=== PATIENT | male | born 1940 | race Caucasian/White ===

== ENCOUNTER 2019-01-12 09:40 | Outpatient (CLI) | payer MEDICARE, BC ==
--- NOTE | 2019-01-12 12:32 | RAD ---
Right foot 3 views: HISTORY: Foot pain, M19.9. COMPARISON: None. FINDINGS: Moderate degenerative change of the great toe metatarsophalangeal joint. Lisfranc interval is mainta ined. Large lateral osteophytes of the great toe metatarsophalangeal joint. No acute fracture or malalignm ent. Moderate plantar calcaneal spur. Mild mid foot degenerative changes. 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 No acute osseous abnormali ty. POS: [facility]
== END 2019-01-12 09:41 | disposition home or self-care (01) ==
LOC: BICRAD 09:40
PROVIDERS: ATTEND Podiatrist
DX: M19.071 Primary osteoarthritis, right ankle and foot (principal)

== ENCOUNTER 2019-08-22 09:33 | Day surgery (SDC) | payer MEDICARE, BC ==
[2019-08-19 14:13] VITALS: BMI 26.4
[2019-08-22 10:39] LABS: Hemoglobin 15.2 g/dL (14.0-18.0); Mean Corpuscular Hemoglobin 32.1 pg (27.0-31.0); Mean Corpuscular Volume 94.4 fL (78.0-98.0); Mean Platelet Volume 7.5 fL (7.4-10.4); Platelet Count 167 thou/uL (130-400); RBC Distribution Width 10.8 % (11.5-14.5); Red Blood Cell (RBC) Count 4.73 mill/uL (4.70-6.10); White Blood Cell (WBC) Count 7.8 thou/uL (4.8-10.8)
[2019-08-22 10:59] LABS: PTT 30.1 SEC (22.9-36.1)
[2019-08-22 11:15] LABS: Anion Gap 11 mmol/L (10-20); BUN (Urea Nitrogen) 16 mg/dL (8.4-25.7); Calc. Creatinine Clearance 87 mL/min (70-130); Calcium 9.5 mg/dL (7.8-10.44); Carbon Dioxide 29 mmol/L (23-31); Chloride 103 mmol/L (98-107); Estimated GFR-MDRD 82; Glucose 99 mg/dL (83-110); Potassium 4.5 mmol/L (3.5-5.1); Sodium 138 mmol/L (136-145)
[2019-08-22] MEDS ORDERED: Iothalamate Meglumine 60% 50 ML VIAL FS ONE (11:26)
[2019-08-22] MEDS ORDERED: Fentanyl 100 MCG/2 ML VIAL ONE (11:32)
[2019-08-22] MEDS ORDERED: Furosemide 20 MG/2 ML VIAL ONE (12:08)
[2019-08-22] MEDS ORDERED: Methylene Blue 50 MG/10 ML AMPUL ONE (12:08)
--- NOTE | 2019-08-22 13:24 | RAD ---
EXAM: XR IVP Retrograde PROVIDED CLINICAL HISTORY: Ureteral stent placement. COMPARISON: None FINDINGS/IMPRESSION: 11 intraoperative fluoroscopic images from bilateral retrograde urogram is submitted for interpretati on. Images demonstrate cannulation of each ureter, and bilateral retrograde urograms were performed. No hydronephrosis or hydroureter is seen. No persistent filling defect is identified withi n either ureter, and no focal narrowing is seen. There is suggested narrowing in the region of the left UPJ which is likely a factor of tortuosity. Degenerative changes are seen in the lumbar spine. C orrelation with intraoperative findings is recommended.
[2019-08-22] MEDS ORDERED: ePHEDrine/0.9% NaCl/PF SYRINGE 50 mg/10 ml ONE (13:34)
[2019-08-22] MEDS ORDERED: PROPOFOL 200 MG/20 ML VIAL ONE (13:34)
[2019-08-22] MEDS ORDERED: Ondansetron PF 4 MG/2 ML Vial ONE (13:34)
[2019-08-22] MEDS ORDERED: Dexamethasone 20 MG/5 ML VIAL ONE (13:34)
--- NOTE | 2019-08-22 14:18 | OP ---
DATE OF PROCEDURE: 08/22/2019 PREOPERATIVE DIAGNOSES: 1. Micro hematuria. 2. Bladder debris. 3. History of prostate cancer. POSTOPERATIVE DIAGNOSES: 1. Micro hematuria. 2. Bladder debris. 3. History of prostate cancer. 4. Urethral strictures. PROCEDURES PERFORMED: 1. Cystoscopy. 2. Evacuation of debris. 3. Bilateral retrograde pyelography. 4. Urethral dilatation. SPECIMEN SENT: None. ESTIMATED BLOOD LOSS: Minimal. FINDINGS: He had diffuse urethral stricture disease. We looked in with a 20-Trinidadian and gently dilate him and went up to a 25-Trinidadian. This was all done under direct vision by just changing Trinidadian sizes of the cystoscopic instruments. He had mildly enlarged prostate gland. He has had radiation and he had radiation changes particularly on the trigone. A lot of bullous tissue here, could not easily find the right ureteral orifice. It took probably 40 minutes to find it after the patient was given indigo carmine and Lasix, even then it was difficult to see it effluxing, but eventually it was found. Bilateral retrograde studies showed some slight tapering of the distal ureters as they entered the bladder, a little bit worse on the right than the left, but no significant sign of obstruction or hydronephrosis to my review. The bladder itself was free of tumor, foreign body, or stone. The only findings were some radiation changes mainly along the trigone and floor of the bladder. DESCRIPTION OF PROCEDURE: After obtaining written and verbal consent from the patient after receiving IV antibiotics, he was taken to the operating suite. He was placed in the supine position on the treatment table. PlexiPulses were placed on his lower extremities and turned on. He was given a general anesthetic and oral obturator intubation. He was placed in the dorsal lithotomy position and he was sterilely prepped and draped. Cystoscopy was performed with a 22-Trinidadian sheath. This was well lubricated and advanced under direct vision through the male urethra into the urinary bladder with the aid of a 30-degree lens and video camera and monitor. The findings were as mentioned. The bladder was filled and emptied a number of times to wash out all of the debris that was on the floor of the bladder and then the bladder was examined both the 30 and the 70-degree lens with the findings above. At this point, we went ahead and easily identified the left ureteral orifice and we could not intubated it with a Pollack catheter, but we were able to place an angle-tipped Glidewire in it and then placed a Pollack catheter in it and then injected about 12 to 15 mL of contrast in a retrograde manner, filling out the system completely. There was no hydronephrosis and it did drain well, tapered a little bit, and there was some J hooking on the left side of the ureter. We could not find the right ureteral orifice. We searched for quite a bit for giving Lasix and indigo carmine. Even then, I did not ever really see it effluxing blue urine, but we did eventually find it. The reason it was difficult to find was basically related just to the some of the bullous edema and radiation changes seen along the trigone. Once it was found, we were able to get an angled Glidewire in it and then advanced the Pollack catheter over this, then injected about 15 mL of contrast in a retrograde manner, removing the Pollack catheter, watching efflux briskly, and watching the ureter basically clear. At this point, the bladder was drained. The instruments were removed. He was taken out of the dorsal lithotomy position, awakened, extubated, and taken by amanda to the recovery room. Job ID: [id number]
== END 2019-08-22 14:50 | disposition home or self-care (01) ==
LOC: SDC 09:33
PROVIDERS: ATTEND Urology
PROC: BT141ZZ Fluoroscopy of Kidneys, Ureters and Bladder using Low Osmolar Contrast (ICD-10-PCS; principal; 2019-08-22)
PROC: 0T7D8ZZ Dilation of Urethra, Via Natural or Artificial Opening Endoscopic (ICD-10-PCS; 2019-08-22)
DX: N35.919 Unspecified urethral stricture, male, unspecified site (principal); N32.89 Other specified disorders of bladder; R31.29 Other microscopic hematuria; N40.1 Benign prostatic hyperplasia with lower urinary tract symptoms; E78.00 Pure hypercholesterolemia, unspecified; I48.91 Unspecified atrial fibrillation; Z79.82 Long term (current) use of aspirin; Z79.899 Other long term (current) drug therapy; Z88.8 Allergy status to other drugs, medicaments and biological substances
CPT/HCPCS: 52281; 74420; 80048; 85027; 85610; 85730; C1758; C1769; Q9968; J0690; J1100; J1940; J2405; J2704; J3010

== ENCOUNTER 2021-12-31 12:15 | Outpatient (CLI) | payer MEDICARE, BC ==
[2021-12-31 13:02] LABS: #Basophils 0.1 10x3/uL (0.0-0.2); #Eosinphils 0.2 10x3/uL (0.0-0.5); #Monocytes 0.6 10x3/uL (0.0-1.1); #Neutrophils 9.4 10x3/uL (1.5-8.4); %Basophils 0.5 % (0.0-2.0); %Eosinophils 1.8 % (0.0-6.0); %Lymphocytes 13.2 % (18.0-47.0); %Monocytes 4.8 % (0.0-10.0); %Neutrophils 78.9 % (40.0-75.0); Hemoglobin 11.9 g/dL (13.5-17.5); Mean Corpuscular Hemoglobin 28.2 pg (27.0-33.0); Mean Corpuscular Volume 85.5 fl (81.2-95.1); Platelet Count 296 10x3/uL (150-450); RBC Distribution Width 12.1 % (11.5-14.5); Red Blood Cell (RBC) Count 4.22 10x6/uL (4.32-5.72)
[2022-01-01 00:19] LABS: SARS-CoV-2 PCR by NAA Not Detected (NotDetected)
== END 2021-12-31 12:16 | disposition home or self-care (01) ==
LOC: LABBT 12:15
PROVIDERS: ATTEND Surgery
DX: Z01.812 Encounter for preprocedural laboratory examination (principal); C67.9 Malignant neoplasm of bladder, unspecified; Z20.822 Contact with and (suspected) exposure to COVID-19
CPT/HCPCS: 71046; 85025; U0003; U0005

== ENCOUNTER 2022-01-03 10:12 | Day surgery (SDC) | payer MEDICARE, BC ==
[2022-01-02 09:57] VITALS: BMI 26.9
[2022-01-03] MEDS ORDERED: Acetaminophen 500 MG TAB ONE (10:56)
[2022-01-03] MEDS ORDERED: Bupivacaine 0.25% 10 ML VIAL ONE (10:59)
[2022-01-03] MEDS ORDERED: Lidocaine 1% w/Epinephrine 1:100K 20 ML VIAL ONE (10:59)
[2022-01-03] MEDS ORDERED: Propofol 500 MG/50 ML VIAL ONE (11:30)
[2022-01-03] MEDS ORDERED: CEFAZOLIN 2 GM VIAL ONE (11:41)
[2022-01-03] MEDS ORDERED: Sodium Chloride 0.9% 100 ML ONE (11:41)
[2022-01-03] MEDS ORDERED: Lidocaine 1% PF 5 ML VIAL ONE (11:46)
[2022-01-03] MEDS ORDERED: Ondansetron PF 4 MG/2 ML Vial ONE (11:46)
[2022-01-03] MEDS ORDERED: ePHEDrine 50 MG/ML VIAL ONE (11:46)
[2022-01-03] MEDS ORDERED: PHENYLEPHRINE-NS 100 MCG/ML 10 ML SYRINGE ONE (11:46)
[2022-01-03] MEDS ORDERED: PROPOFOL 200 MG/20 ML VIAL ONE (11:46)
== END 2022-01-03 14:55 | disposition home or self-care (01) ==
LOC: SDC 10:12
PROVIDERS: ATTEND Surgery
PROC: 02HV33Z Insertion of Infusion Device into Superior Vena Cava, Percutaneous Approach (ICD-10-PCS; principal; 2022-01-03)
DX: C67.9 Malignant neoplasm of bladder, unspecified (principal); N18.9 Chronic kidney disease, unspecified; I48.91 Unspecified atrial fibrillation; Z79.82 Long term (current) use of aspirin; Z79.899 Other long term (current) drug therapy; Z88.8 Allergy status to other drugs, medicaments and biological substances
CPT/HCPCS: 36561; 71045; C1788; J1642; J2704; J3490; S0020

== ENCOUNTER 2022-08-07 12:17 | Inpatient (IN) | payer MEDICARE, BC ==
[2022-08-07 13:41] LABS: Hemoglobin 12.5 g/dL (14.0-18.0); Mean Corpuscular HGB CONC 31.1 g/dL (32.0-36.0); Mean Corpuscular Hemoglobin 24.7 pg (27.0-31.0); Mean Corpuscular Volume 79.4 fl (78.0-98.0); Mean Platelet Volume 7.1 fL (7.4-10.4); Platelet Count 406 10x3/uL (130-400); Red Blood Cell (RBC) Count 5.07 mill/uL (4.70-6.10); White Blood Cell (WBC) Count 23.6 10x3/uL (4.8-10.8)
[2022-08-07 14:07] LABS: ALT (SGPT) 15 U/L (8-55); AST (SGOT) 16 U/L (5-34); Albumin 3.9 g/dL (3.4-4.8); Alkaline Phosphatase 77 U/L (40-110); Anion Gap 11 mmol/L (10-20); BUN (Urea Nitrogen) 30 mg/dL (8.4-25.7); Calc. Creatinine Clearance 0 mL/min (70-130); Calcium 8.7 mg/dL (7.8-10.44); Carbon Dioxide 24 mmol/L (23-31); Chloride 103 mmol/L (98-107); Estimated GFR 44; Globulin 2.8 g/dL (2.4-3.5); Glucose 143 mg/dL (83-110); Magnesium 1.8 mg/dL (1.6-2.6); Potassium 3.8 mmol/L (3.5-5.1); Protein, Total 6.7 g/dL (5.8-8.1); Sodium 134 mmol/L (136-145)
[2022-08-07 14:09] LABS: Band 1 % (5-11); Hypochromia SLIGHT = 6-15 cells (100X) (0-5/hpf); Lymphocytes 11 % (21-51); MDiff Complete? YES; Monocytes 7 % (0-10); Neutrophil 79 % (42-75); Platelet Morphology Comment Appears Increased; Polychromasia SLIGHT = 2-3 cells (100X) (0-2/hpf); Reactive Lymphocytes 2 % (0-10)
[2022-08-07] MEDS ORDERED: Cefepime 2 GM VIAL ONE (14:47)
[2022-08-07 14:57] LABS: SARS-CoV-2 NAA Rapid Test Not Detected (NotDetected)
[2022-08-07] MEDS ORDERED: Vancomycin 1 GM/200 ML (FROZEN) BAG ONE (16:07)
[2022-08-07] MEDS ORDERED: Loperamide HCl 2 MG CAP ONE (16:09)
[2022-08-07 16:27] LABS: Bacteria/HPF 4+ HPF (None Seen); Bilirubin Negative (Negative); Blood, Urine Trace (Negative); Clarity Turbid (Clear); Glucose, Urine (Dipstick) Normal (Negative); Ketone, Urine Negative (Negative); Leukocyte 500 Leu/uL (Negative); Nitrite Negative (Negative); Protein, Urine (Dipstick) 70 mg/dL (Neg-Trace); Specific Gravity, Urine 1.015 (1.002-1.036); Squamous Epithelial 0-3 HPF (0-3); Urobilinogen Normal mg/dL (Less than 2); WBC/HPF Greater than 50 HPF (0-3); pH, Urine 8.5 (5.0-9.0)
[2022-08-07] MEDS ORDERED: Loperamide HCl 2 MG CAP PO PRN (17:26)
[2022-08-07] MEDS ORDERED: Acetaminophen 325 MG TAB PO PRN (17:26)
[2022-08-07] MEDS ORDERED: Ondansetron ODT 4 MG TAB PO PRN (17:26)
[2022-08-07] MEDS ORDERED: Diphenoxylate HCl/Atropine Tablet PO PRN (18:03)
[2022-08-07] MEDS: Sodium Chloride 0.9% 1,000 ML IV SCH (21:43)
[2022-08-07] MEDS: Famotidine 20 MG TAB PO SCH (21:52)
[2022-08-07] MEDS: Rosuvastatin 10 MG TAB PO SCH (21:52)
[2022-08-07] MEDS: Mirtazapine 15 MG TAB PO SCH (21:52)
[2022-08-07] MEDS: Apixaban 5 MG TAB PO SCH (21:52)
[2022-08-07 23:24] VITALS: BMI 25.2
[2022-08-07] MEDS: VANCOMYCIN 1.25 GM/250 ML BAG 1.25 GM in Premix Bag 1 BAG IVPB SCH (23:49)
[2022-08-08] MEDS: Cefepime 2 GM in Sodium Chloride 0.9% 100 ML IVPB SCH ×2 (02:23→14:23)
[2022-08-08] MEDS: Sodium Chloride 0.9% 1,000 ML IV SCH (05:42)
[2022-08-08 07:38] LABS: Hemoglobin 10.2 g/dL (14.0-18.0); Mean Corpuscular HGB CONC 31.3 g/dL (32.0-36.0); Mean Corpuscular Hemoglobin 24.5 pg (27.0-31.0); Mean Corpuscular Volume 78.4 fl (78.0-98.0); Mean Platelet Volume 7.5 fL (7.4-10.4); Platelet Count 268 10x3/uL (130-400); RBC Distribution Width 15.8 % (11.5-14.5); Red Blood Cell (RBC) Count 4.15 mill/uL (4.70-6.10); White Blood Cell (WBC) Count 13.8 10x3/uL (4.8-10.8)
[2022-08-08 07:44] LABS: Anion Gap 8 mmol/L (10-20); BUN (Urea Nitrogen) 23 mg/dL (8.4-25.7); Calc. Creatinine Clearance 55 mL/min (70-130); Calcium 7.9 mg/dL (7.8-10.44); Carbon Dioxide 25 mmol/L (23-31); Chloride 107 mmol/L (98-107); Estimated GFR 57; Glucose 92 mg/dL (83-110); Potassium 4.1 mmol/L (3.5-5.1); Sodium 136 mmol/L (136-145)
[2022-08-08] MEDS: Famotidine 20 MG TAB PO SCH ×2 (08:40→20:02)
[2022-08-08] MEDS: Apixaban 5 MG TAB PO SCH ×2 (08:40→20:02)
[2022-08-08] MEDS: Aspirin 81 mg Enteric Coated Tablet PO SCH ×2 (08:40→08:41)
[2022-08-08] MEDS: predniSONE 50 MG TAB PO SCH (08:40)
[2022-08-08] MEDS: Calcium Carbonate 600 MG + Vit D TAB PO SCH (08:40)
[2022-08-08] MEDS: Cyanocobalamin (Vitamin B-12) 1,000 MCG TAB PO SCH (08:40)
[2022-08-08 08:50] LABS: #Eosinphils 0.1 thou/uL (0.0-0.7); #Lymphocytes 1.9 thou/uL (1.20-3.40); #Monocytes 0.8 thou/uL (0.11-0.59); %Eosinophils 0.6 % (0.0-10.0); %Lymphocytes 14.1 % (21.0-51.0); %Monocytes 5.6 % (0.0-10.0); %Neutrophils 79.7 % (42.0-75.0); MDiff Complete? YES; Microcytosis SLIGHT = 6-15 cells (100X) (0-5/hpf); Platelet Morphology Comment Appears Adequate; Polychromasia SLIGHT = 2-3 cells (100X) (0-2/hpf)
[2022-08-08] MEDS ORDERED: FLU VACC QS2022-23(65YR UP)/PF 240 MCG/0.7 ML SYRINGE IM ONE (09:00)
[2022-08-08 12:52] LABS: Campy jejuni + coli by PCR Negative (Negative); STEC Shiga Toxin 1+2 Negative (Negative); Salmonella spp. by PCR Negative (Negative); Shigella spp + EIEC by PCR Negative (Negative)
[2022-08-08] MEDS: Mirtazapine 15 MG TAB PO SCH (20:02)
[2022-08-08] MEDS: Rosuvastatin 10 MG TAB PO SCH (20:02)
[2022-08-08] MEDS ORDERED: Melatonin 3 MG TAB PO PRN (20:04)
[2022-08-09] MEDS: VANCOMYCIN 1.25 GM/250 ML BAG 1.25 GM in Premix Bag 1 BAG IVPB SCH (00:07)
[2022-08-09] MEDS: Cefepime 2 GM in Sodium Chloride 0.9% 100 ML IVPB SCH ×2 (02:56→14:22)
[2022-08-09] MEDS ORDERED: Simethicone Chewable 80 MG TAB PO SCH (03:15)
[2022-08-09 06:12] LABS: #Eosinphils 0.1 thou/uL (0.0-0.7); #Lymphocytes 2.2 thou/uL (1.20-3.40); #Monocytes 1.1 thou/uL (0.11-0.59); #Neutrophils 15.3 thou/uL (1.40-6.50); %Eosinophils 0.3 % (0.0-10.0); %Lymphocytes 11.9 % (21.0-51.0); %Monocytes 5.8 % (0.0-10.0); Hemoglobin 11.1 g/dL (14.0-18.0); Mean Corpuscular Hemoglobin 24.8 pg (27.0-31.0); Mean Corpuscular Volume 77.6 fl (78.0-98.0); Mean Platelet Volume 7.7 fL (7.4-10.4); Platelet Count 274 10x3/uL (130-400); RBC Distribution Width 16.1 % (11.5-14.5); Red Blood Cell (RBC) Count 4.46 mill/uL (4.70-6.10); White Blood Cell (WBC) Count 18.7 10x3/uL (4.8-10.8)
[2022-08-09 06:40] LABS: Anion Gap 11 mmol/L (10-20); BUN (Urea Nitrogen) 21 mg/dL (8.4-25.7); Calc. Creatinine Clearance 58 mL/min (70-130); Calcium 8.3 mg/dL (7.8-10.44); Carbon Dioxide 25 mmol/L (23-31); Chloride 103 mmol/L (98-107); Estimated GFR 61; Glucose 106 mg/dL (83-110); Potassium 3.5 mmol/L (3.5-5.1); Sodium 135 mmol/L (136-145)
[2022-08-09] MEDS: Famotidine 20 MG TAB PO SCH ×2 (08:10→20:29)
[2022-08-09] MEDS: Calcium Carbonate 600 MG + Vit D TAB PO SCH (08:10)
[2022-08-09] MEDS: predniSONE 50 MG TAB PO SCH (08:10)
[2022-08-09] MEDS: Apixaban 5 MG TAB PO SCH ×2 (08:10→20:29)
[2022-08-09] MEDS: Aspirin 81 mg Enteric Coated Tablet PO SCH (08:10)
[2022-08-09] MEDS: Cyanocobalamin (Vitamin B-12) 1,000 MCG TAB PO SCH (08:11)
[2022-08-09] MEDS ORDERED: Mag-Al Plus 1200 MG/1200 MG/120 MG/30 ML UDCUP PO SCH (08:45)
[2022-08-09] MEDS ORDERED: traZODone HCl 50 MG TAB PO PRN (19:58)
[2022-08-09] MEDS: Mirtazapine 15 MG TAB PO SCH (20:29)
[2022-08-09] MEDS: Rosuvastatin 10 MG TAB PO SCH (20:29)
[2022-08-09 23:48] LABS: Vancomycin, Trough 11.2 ug/mL
[2022-08-10] MEDS: VANCOMYCIN 1.25 GM/250 ML BAG 1.25 GM in Premix Bag 1 BAG IVPB SCH (00:14)
[2022-08-10] MEDS: Cefepime 2 GM in Sodium Chloride 0.9% 100 ML IVPB SCH (03:03)
[2022-08-10 06:50] LABS: #Eosinphils 0.1 thou/uL (0.0-0.7); #Neutrophils 12.1 thou/uL (1.40-6.50); %Basophils 0.2 % (0.0-1.0); %Eosinophils 0.6 % (0.0-10.0); %Lymphocytes 13.1 % (21.0-51.0); %Monocytes 6.6 % (0.0-10.0); %Neutrophils 79.6 % (42.0-75.0); Hemoglobin 11.1 g/dL (14.0-18.0); Mean Corpuscular HGB CONC 32.4 g/dL (32.0-36.0); Mean Corpuscular Hemoglobin 25.2 pg (27.0-31.0); Mean Corpuscular Volume 77.7 fl (78.0-98.0); Mean Platelet Volume 7.9 fL (7.4-10.4); Platelet Count 254 10x3/uL (130-400); RBC Distribution Width 16.3 % (11.5-14.5); Red Blood Cell (RBC) Count 4.41 mill/uL (4.70-6.10); White Blood Cell (WBC) Count 15.2 10x3/uL (4.8-10.8)
[2022-08-10 07:12] LABS: Anion Gap 11 mmol/L (10-20); BUN (Urea Nitrogen) 20 mg/dL (8.4-25.7); Calc. Creatinine Clearance 57 mL/min (70-130); Calcium 8.3 mg/dL (7.8-10.44); Carbon Dioxide 26 mmol/L (23-31); Chloride 102 mmol/L (98-107); Estimated GFR 60; Glucose 94 mg/dL (83-110); Potassium 3.9 mmol/L (3.5-5.1); Sodium 135 mmol/L (136-145)
[2022-08-10] MEDS: Cyanocobalamin (Vitamin B-12) 1,000 MCG TAB PO SCH (08:29)
[2022-08-10] MEDS: Famotidine 20 MG TAB PO SCH (08:29)
[2022-08-10] MEDS: predniSONE 50 MG TAB PO SCH (08:29)
[2022-08-10] MEDS: Apixaban 5 MG TAB PO SCH (08:29)
[2022-08-10] MEDS: Calcium Carbonate 600 MG + Vit D TAB PO SCH (08:29)
[2022-08-10] MEDS: Aspirin 81 mg Enteric Coated Tablet PO SCH (08:30)
[2022-08-10] MEDS ORDERED: Mag-Al Plus 1200 MG/1200 MG/120 MG/30 ML UDCUP PO SCH (11:15)
[2022-08-10 13:59] VITALS: BP 115/76; TEMP 97.8
== END 2022-08-10 14:10 | disposition home or self-care (01) | DRG 872 ==
LOC: ERS 12:17 → T4-A 16:57
PROVIDERS: ADMIT Internal Medicine; ATTEND Internal Medicine
DX: A41.9 Sepsis, unspecified organism (principal); I48.20 Chronic atrial fibrillation, unspecified; N39.0 Urinary tract infection, site not specified; E87.1 Hypo-osmolality and hyponatremia; N17.9 Acute kidney failure, unspecified; D68.51 Activated protein C resistance; K52.1 Toxic gastroenteritis and colitis; C67.9 Malignant neoplasm of bladder, unspecified; N18.30 Chronic kidney disease, stage 3 unspecified; E78.00 Pure hypercholesterolemia, unspecified; T45.1X5A Adverse effect of antineoplastic and immunosuppressive drugs, initial encounter; I12.9 Hypertensive chronic kidney disease with stage 1 through stage 4 chronic kidney disease, or unspecified chronic kidney disease; Z88.8 Allergy status to other drugs, medicaments and biological substances; Z79.82 Long term (current) use of aspirin; Z79.899 Other long term (current) drug therapy; Z79.01 Long term (current) use of anticoagulants; Z90.49 Acquired absence of other specified parts of digestive tract; Z86.718 Personal history of other venous thrombosis and embolism
CPT/HCPCS: 36415; 70450; 80048; 80053; 80202; 81003; 81015; 83605; 83630; 83735; 83880; 84484; 85025; 87040; 87077; 87081; 87086; 87186; 87324; 87449; 87505; 87798; 96374; 96375; J0692; J3370; J3370-JW; J3490; J7050; J7512

== ENCOUNTER 2022-09-03 11:29 | Inpatient (IN) | payer MEDICARE, BC ==
[~2022-09-03 11:29] MED LIST: Iopamidol-370 76% 500 ML 1 ML ONE
[2022-09-03] MEDS ORDERED: Magnesium 2 GM/50 ML BAG (IN WATER) ONE (12:08)
[2022-09-03] MEDS ORDERED: Digoxin 0.5 MG/2 ML AMP ONE (12:08)
[2022-09-03] MEDS ORDERED: Dexamethasone 10 MG/ML VIAL ONE (12:09)
[2022-09-03 12:33] LABS: #Lymphocytes 0.5 thou/uL (1.20-3.40); #Monocytes 0.3 thou/uL (0.11-0.59); #Neutrophils 12.3 thou/uL (1.40-6.50); %Basophils 0.2 % (0.0-1.0); %Eosinophils 0.3 % (0.0-10.0); %Lymphocytes 3.5 % (21.0-51.0); %Monocytes 2.3 % (0.0-10.0); %Neutrophils 93.7 % (42.0-75.0); Hemoglobin 10.8 g/dL (14.0-18.0); Mean Corpuscular Hemoglobin 25.8 pg (27.0-31.0); Mean Corpuscular Volume 80.7 fl (78.0-98.0); Mean Platelet Volume 8.5 fL (7.4-10.4); Platelet Count 192 10x3/uL (130-400); RBC Distribution Width 18.1 % (11.5-14.5); Red Blood Cell (RBC) Count 4.17 mill/uL (4.70-6.10); White Blood Cell (WBC) Count 13.1 10x3/uL (4.8-10.8)
[2022-09-03 12:45] LABS: ALT (SGPT) 60 U/L (8-55); AST (SGOT) 18 U/L (5-34); Albumin 2.9 g/dL (3.4-4.8); Alkaline Phosphatase 130 U/L (40-110); Anion Gap 12 mmol/L (10-20); BUN (Urea Nitrogen) 33 mg/dL (8.4-25.7); Bilirubin, Total 0.6 mg/dL (0.2-1.2); CK (CPK) 14 U/L (30-200); Calc. Creatinine Clearance 0 mL/min (70-130); Calcium 9.2 mg/dL (7.8-10.44); Carbon Dioxide 27 mmol/L (23-31); Chloride 97 mmol/L (98-107); Estimated GFR 61; Globulin 2.6 g/dL (2.4-3.5); Glucose 207 mg/dL (83-110); Lipase 10 U/L (8-78); Potassium 4.4 mmol/L (3.5-5.1); Protein, Total 5.5 g/dL (5.8-8.1); Sodium 132 mmol/L (136-145)
[2022-09-03 13:02] LABS: Bacteria/HPF 2+ HPF (None Seen); Bilirubin Negative (Negative); Blood, Urine Negative (Negative); Clarity Turbid (Clear); Glucose, Urine (Dipstick) Normal (Negative); Ketone, Urine Negative (Negative); Leukocyte 500 Leu/uL (Negative); Nitrite Negative (Negative); Protein, Urine (Dipstick) 30 mg/dL (Neg-Trace); RBC/HPF 0-3 HPF (0-3); Specific Gravity, Urine 1.016 (1.002-1.036); Squamous Epithelial 0-3 HPF (0-3); WBC/HPF 21-50 HPF (0-3); pH, Urine 6.5 (5.0-9.0)
[2022-09-03] MEDS ORDERED: Diltiazem 125 MG/25 ML ONE (14:04)
[2022-09-03] MEDS ORDERED: Diltiazem 125 MG in Sodium Chloride 0.9% 100 ML IVPB SCH (16:00)
[2022-09-03] MEDS ORDERED: Melatonin 3 MG TAB PO PRN (16:07)
[2022-09-03] MEDS ORDERED: HYDROcodone/Acetaminophen 5/325 mg Tablet PO PRN (16:08)
[2022-09-03] MEDS ORDERED: Guaifenesin DM 100-10/5 ML UDCUP PO PRN (16:11)
[2022-09-03] MEDS ORDERED: Ondansetron PF 4 MG/2 ML Vial IVP PRN (16:11)
[2022-09-03] MEDS ORDERED: Ondansetron ODT 4 MG TAB PO PRN (16:11)
[2022-09-03] MEDS ORDERED: Morphine 4 MG/ML VIAL SLOW IVP PRN (16:46)
[2022-09-03 18:23] LABS: SARS-CoV-2 NAA Rapid Test Not Detected (NotDetected)
[2022-09-03] MEDS ORDERED: Metoprolol Tartrate 5 MG/5 ML VIAL IVP SCH (20:30)
[2022-09-03] MEDS ORDERED: Metoprolol Tartrate 5 MG/5 ML VIAL ONE (20:32)
[2022-09-03 21:44] LABS: Magnesium 1.8 mg/dL (1.6-2.6)
[2022-09-03 21:50] LABS: Troponin I Less than 0.010 ng/mL (< 0.028)
[2022-09-04] MEDS: Digoxin 0.5 MG/2 ML AMP SLOW IVP SCH ×2 (02:11→03:16)
[2022-09-04] MEDS: Rosuvastatin 10 MG TAB PO SCH ×2 (02:22→21:21)
[2022-09-04] MEDS: Apixaban 5 MG TAB PO SCH ×3 (02:22→21:21)
[2022-09-04] MEDS: Calcium Carbonate 600 MG + Vit D TAB PO SCH ×3 (03:15→16:37)
[2022-09-04 05:35] LABS: #Lymphocytes 0.8 thou/uL (1.20-3.40); #Monocytes 0.4 thou/uL (0.11-0.59); #Neutrophils 11.2 thou/uL (1.40-6.50); %Eosinophils 0.1 % (0.0-10.0); %Lymphocytes 6.3 % (21.0-51.0); %Monocytes 2.8 % (0.0-10.0); %Neutrophils 90.8 % (42.0-75.0); Hemoglobin 10.2 g/dL (14.0-18.0); Mean Corpuscular HGB CONC 31.9 g/dL (32.0-36.0); Mean Corpuscular Hemoglobin 25.9 pg (27.0-31.0); Mean Platelet Volume 7.9 fL (7.4-10.4); Platelet Count 179 10x3/uL (130-400); RBC Distribution Width 18.1 % (11.5-14.5); Red Blood Cell (RBC) Count 3.96 mill/uL (4.70-6.10); White Blood Cell (WBC) Count 12.4 10x3/uL (4.8-10.8)
[2022-09-04 05:53] LABS: Anion Gap 9 mmol/L (10-20); BUN (Urea Nitrogen) 26 mg/dL (8.4-25.7); Calc. Creatinine Clearance 0 mL/min (70-130); Calcium 8.5 mg/dL (7.8-10.44); Carbon Dioxide 27 mmol/L (23-31); Chloride 102 mmol/L (98-107); Estimated GFR 85; Glucose 113 mg/dL (83-110); Magnesium 2.2 mg/dL (1.6-2.6); Potassium 4.2 mmol/L (3.5-5.1); Sodium 134 mmol/L (136-145)
[2022-09-04 08:27] VITALS: BMI 25.1
[2022-09-04] MEDS: Digoxin 0.25 MG TAB PO SCH (08:58)
[2022-09-04] MEDS: predniSONE 20 MG TAB PO SCH (08:59)
[2022-09-04] MEDS: Multivitamin W/ Minerals 1 TAB PO SCH (09:46)
[2022-09-04] MEDS: Cyanocobalamin (Vitamin B-12) 1,000 MCG TAB PO SCH (09:46)
[2022-09-04] MEDS: Sodium Chloride 0.9% 1,000 ML IV SCH (15:05)
[2022-09-04] MEDS ORDERED: cefTRIAXone\\ROCEPHIN 1 GM in Sodium Chloride 0.9% 100 ML IVPB SCH (18:00)
[2022-09-04] MEDS: Acetaminophen 325 MG TAB PO PRN (21:26)
[2022-09-05] MEDS ORDERED: Sodium Chloride 0.9% 250 ML IV SCH (03:45)
[2022-09-05] MEDS: Sodium Chloride 0.9% 1,000 ML IV SCH (04:28)
[2022-09-05 04:57] LABS: #Eosinphils 0.1 thou/uL (0.0-0.7); #Lymphocytes 1.3 thou/uL (1.20-3.40); #Monocytes 0.4 thou/uL (0.11-0.59); #Neutrophils 12.3 thou/uL (1.40-6.50); %Basophils 0.2 % (0.0-1.0); %Eosinophils 0.7 % (0.0-10.0); %Lymphocytes 9.3 % (21.0-51.0); %Monocytes 2.6 % (0.0-10.0); %Neutrophils 87.2 % (42.0-75.0); Hemoglobin 11.1 g/dL (14.0-18.0); Mean Corpuscular HGB CONC 32.1 g/dL (32.0-36.0); Mean Corpuscular Hemoglobin 25.7 pg (27.0-31.0); Mean Corpuscular Volume 80.2 fl (78.0-98.0); Platelet Count 221 10x3/uL (130-400); RBC Distribution Width 17.7 % (11.5-14.5); Red Blood Cell (RBC) Count 4.33 mill/uL (4.70-6.10); White Blood Cell (WBC) Count 14.1 10x3/uL (4.8-10.8)
[2022-09-05] MEDS ORDERED: Metoprolol Tartrate 5 MG/5 ML VIAL IVP SCH (05:15)
[2022-09-05 05:19] LABS: Anion Gap 12 mmol/L (10-20); BUN (Urea Nitrogen) 24 mg/dL (8.4-25.7); Calc. Creatinine Clearance 74 mL/min (70-130); Calcium 8.6 mg/dL (7.8-10.44); Carbon Dioxide 26 mmol/L (23-31); Chloride 99 mmol/L (98-107); Estimated GFR 83; Glucose 82 mg/dL (83-110); Magnesium 1.7 mg/dL (1.6-2.6); Potassium 4.2 mmol/L (3.5-5.1); Sodium 133 mmol/L (136-145)
[2022-09-05 05:24] LABS: Troponin I 0.012 ng/mL (< 0.028)
[2022-09-05] MEDS: Acetaminophen 325 MG TAB PO PRN ×2 (08:38→20:21)
[2022-09-05] MEDS: Simethicone Chewable 80 MG TAB PO PRN ×2 (08:40→17:48)
[2022-09-05] MEDS: Digoxin 0.25 MG TAB PO SCH (08:41)
[2022-09-05] MEDS: Cyanocobalamin (Vitamin B-12) 1,000 MCG TAB PO SCH (08:41)
[2022-09-05] MEDS: Apixaban 5 MG TAB PO SCH ×2 (08:41→20:21)
[2022-09-05] MEDS: Saccharomyces boulardii 250 MG CAP PO SCH (08:41)
[2022-09-05] MEDS: Calcium Carbonate 600 MG + Vit D TAB PO SCH ×2 (08:45→17:45)
[2022-09-05] MEDS: predniSONE 20 MG TAB PO SCH (08:46)
[2022-09-05] MEDS: Multivitamin W/ Minerals 1 TAB PO SCH (08:47)
[2022-09-05] MEDS: Docusate 100 MG CAP PO SCH ×2 (09:22→20:20)
[2022-09-05] MEDS ORDERED: Promethazine HCl 25 MG in Sodium Chloride 0.9% 50 ML IVPB PRN (15:14)
[2022-09-05] MEDS: Rosuvastatin 10 MG TAB PO SCH (20:20)
[2022-09-05] MEDS: Ciprofloxacin 500 MG TAB PO SCH (20:21)
[2022-09-05] MEDS: traZODone HCl 50 MG TAB PO PRN (20:21)
[2022-09-06] MEDS: Sodium Chloride 0.9% 1,000 ML IV SCH (05:42)
[2022-09-06] MEDS: Ciprofloxacin 500 MG TAB PO SCH ×2 (05:42→21:11)
[2022-09-06 06:29] LABS: Magnesium 1.7 mg/dL (1.6-2.6)
[2022-09-06] MEDS ORDERED: predniSONE 20 MG TAB PO SCH (08:00)
[2022-09-06] MEDS: Digoxin 0.25 MG TAB PO SCH (10:00)
[2022-09-06] MEDS: Apixaban 5 MG TAB PO SCH ×2 (10:01→21:12)
[2022-09-06] MEDS: Cyanocobalamin (Vitamin B-12) 1,000 MCG TAB PO SCH (10:01)
[2022-09-06] MEDS: predniSONE 5 MG TAB PO SCH (10:01)
[2022-09-06] MEDS: Calcium Carbonate 600 MG + Vit D TAB PO SCH ×2 (10:01→18:29)
[2022-09-06] MEDS: Docusate 100 MG CAP PO SCH ×2 (10:02→21:12)
[2022-09-06] MEDS: Multivitamin W/ Minerals 1 TAB PO SCH (10:02)
[2022-09-06] MEDS: Saccharomyces boulardii 250 MG CAP PO SCH (10:02)
[2022-09-06] MEDS: Acetaminophen 325 MG TAB PO PRN (10:09)
[2022-09-06] MEDS: Simethicone Chewable 80 MG TAB PO PRN ×2 (10:09→21:11)
[2022-09-06] MEDS ORDERED: Magnesium 2 GM/50 ML(in water) 2 GM in Premix Bag 1 BAG IVPB SCH (10:15)
[2022-09-06] MEDS: Rosuvastatin 10 MG TAB PO SCH (21:11)
[2022-09-06] MEDS: traZODone HCl 50 MG TAB PO PRN (21:12)
[2022-09-07] MEDS: Acetaminophen 325 MG TAB PO PRN (05:34)
[2022-09-07] MEDS: Ciprofloxacin 500 MG TAB PO SCH ×2 (05:34→21:03)
[2022-09-07 06:14] LABS: #Eosinphils 0.1 thou/uL (0.0-0.7); #Lymphocytes 0.7 thou/uL (1.20-3.40); #Monocytes 0.3 thou/uL (0.11-0.59); #Neutrophils 8.9 thou/uL (1.40-6.50); %Basophils 0.1 % (0.0-1.0); %Eosinophils 0.7 % (0.0-10.0); %Lymphocytes 7.4 % (21.0-51.0); %Neutrophils 88.7 % (42.0-75.0); Hemoglobin 10.8 g/dL (14.0-18.0); Mean Corpuscular HGB CONC 31.5 g/dL (32.0-36.0); Mean Corpuscular Hemoglobin 25.4 pg (27.0-31.0); Mean Corpuscular Volume 80.5 fl (78.0-98.0); Mean Platelet Volume 7.6 fL (7.4-10.4); Platelet Count 210 10x3/uL (130-400); RBC Distribution Width 17.6 % (11.5-14.5); Red Blood Cell (RBC) Count 4.27 mill/uL (4.70-6.10)
[2022-09-07 06:33] LABS: Anion Gap 11 mmol/L (10-20); BUN (Urea Nitrogen) 21 mg/dL (8.4-25.7); Calc. Creatinine Clearance 71 mL/min (70-130); Carbon Dioxide 27 mmol/L (23-31); Chloride 96 mmol/L (98-107); Potassium 4.1 mmol/L (3.5-5.1); Sodium 130 mmol/L (136-145)
[2022-09-07 06:34] LABS: Calcium 8.5 mg/dL (7.8-10.44); Estimated GFR 77; Glucose 92 mg/dL (83-110); Magnesium 1.8 mg/dL (1.6-2.6)
[2022-09-07] MEDS: Digoxin 0.25 MG TAB PO SCH (08:47)
[2022-09-07] MEDS: predniSONE 5 MG TAB PO SCH (08:48)
[2022-09-07] MEDS: Apixaban 5 MG TAB PO SCH ×2 (08:48→21:04)
[2022-09-07] MEDS: Multivitamin W/ Minerals 1 TAB PO SCH (08:49)
[2022-09-07] MEDS: Docusate 100 MG CAP PO SCH ×2 (08:49→21:05)
[2022-09-07] MEDS: Cyanocobalamin (Vitamin B-12) 1,000 MCG TAB PO SCH (08:50)
[2022-09-07] MEDS: Saccharomyces boulardii 250 MG CAP PO SCH (08:50)
[2022-09-07] MEDS: Calcium Carbonate 600 MG + Vit D TAB PO SCH ×2 (08:50→16:52)
[2022-09-07] MEDS: Simethicone Chewable 80 MG TAB PO PRN (21:02)
[2022-09-07] MEDS: Rosuvastatin 10 MG TAB PO SCH (21:03)
[2022-09-08] MEDS: Ciprofloxacin 500 MG TAB PO SCH ×2 (05:38→20:47)
[2022-09-08] MEDS: Calcium Carbonate 600 MG + Vit D TAB PO SCH ×2 (08:57→17:08)
[2022-09-08] MEDS: Saccharomyces boulardii 250 MG CAP PO SCH (08:57)
[2022-09-08] MEDS: Apixaban 5 MG TAB PO SCH ×2 (08:57→20:47)
[2022-09-08] MEDS: Digoxin 0.25 MG TAB PO SCH (08:59)
[2022-09-08] MEDS: predniSONE 5 MG TAB PO SCH (08:59)
[2022-09-08] MEDS: Multivitamin W/ Minerals 1 TAB PO SCH (09:02)
[2022-09-08] MEDS: Docusate 100 MG CAP PO SCH ×2 (09:02→20:48)
[2022-09-08] MEDS: Cyanocobalamin (Vitamin B-12) 1,000 MCG TAB PO SCH (09:02)
[2022-09-08] MEDS: Dronedarone HCl 400 MG TAB PO SCH (17:08)
[2022-09-08] MEDS: Rosuvastatin 10 MG TAB PO SCH (20:48)
[2022-09-08] MEDS: traZODone HCl 50 MG TAB PO PRN (20:55)
[2022-09-08] MEDS: Acetaminophen 325 MG TAB PO PRN (20:55)
[2022-09-08] MEDS: Simethicone Chewable 80 MG TAB PO PRN (20:55)
[2022-09-09] MEDS: Ciprofloxacin 500 MG TAB PO SCH ×2 (05:47→20:48)
[2022-09-09 07:47] LABS: #Eosinphils 0.1 thou/uL (0.0-0.7); #Lymphocytes 0.7 thou/uL (1.20-3.40); #Monocytes 0.3 thou/uL (0.11-0.59); #Neutrophils 8.7 thou/uL (1.40-6.50); %Eosinophils 0.8 % (0.0-10.0); %Monocytes 3.2 % (0.0-10.0); Hemoglobin 11.9 g/dL (14.0-18.0); Mean Corpuscular HGB CONC 33.5 g/dL (32.0-36.0); Mean Corpuscular Hemoglobin 27.3 pg (27.0-31.0); Mean Corpuscular Volume 81.5 fl (78.0-98.0); Mean Platelet Volume 7.2 fL (7.4-10.4); Platelet Count 228 10x3/uL (130-400); RBC Distribution Width 17.3 % (11.5-14.5); Red Blood Cell (RBC) Count 4.38 mill/uL (4.70-6.10); White Blood Cell (WBC) Count 9.7 10x3/uL (4.8-10.8)
[2022-09-09 08:06] LABS: Anion Gap 13 mmol/L (10-20); BUN (Urea Nitrogen) 23 mg/dL (8.4-25.7); Calc. Creatinine Clearance 61 mL/min (70-130); Calcium 9.4 mg/dL (7.8-10.44); Carbon Dioxide 28 mmol/L (23-31); Chloride 94 mmol/L (98-107); Estimated GFR 64; Glucose 98 mg/dL (83-110); Magnesium 1.7 mg/dL (1.6-2.6); Potassium 4.9 mmol/L (3.5-5.1); Sodium 130 mmol/L (136-145)
[2022-09-09] MEDS: Apixaban 5 MG TAB PO SCH ×2 (09:56→20:48)
[2022-09-09] MEDS: Cyanocobalamin (Vitamin B-12) 1,000 MCG TAB PO SCH (09:57)
[2022-09-09] MEDS: predniSONE 5 MG TAB PO SCH (10:00)
[2022-09-09] MEDS: Calcium Carbonate 600 MG + Vit D TAB PO SCH ×2 (10:06→17:20)
[2022-09-09] MEDS: Saccharomyces boulardii 250 MG CAP PO SCH (10:07)
[2022-09-09] MEDS: Docusate 100 MG CAP PO SCH ×2 (10:08→20:48)
[2022-09-09] MEDS: Multivitamin W/ Minerals 1 TAB PO SCH (10:08)
[2022-09-09] MEDS: Dronedarone HCl 400 MG TAB PO SCH ×2 (10:09→17:20)
[2022-09-09] MEDS: Simethicone Chewable 80 MG TAB PO PRN (17:21)
[2022-09-09] MEDS: Rosuvastatin 10 MG TAB PO SCH (20:48)
[2022-09-09] MEDS: traZODone HCl 50 MG TAB PO PRN (20:48)
[2022-09-10] MEDS: Ciprofloxacin 500 MG TAB PO SCH (05:35)
[2022-09-10] MEDS: Acetaminophen 325 MG TAB PO PRN (05:36)
[2022-09-10 06:28] LABS: #Eosinphils 0.1 thou/uL (0.0-0.7); #Lymphocytes 0.9 thou/uL (1.20-3.40); #Monocytes 0.3 thou/uL (0.11-0.59); #Neutrophils 8.2 thou/uL (1.40-6.50); %Basophils 0.1 % (0.0-1.0); %Eosinophils 0.6 % (0.0-10.0); %Lymphocytes 9.5 % (21.0-51.0); %Monocytes 3.5 % (0.0-10.0); %Neutrophils 86.3 % (42.0-75.0); Hemoglobin 11.1 g/dL (14.0-18.0); Mean Corpuscular HGB CONC 30.9 g/dL (32.0-36.0); Mean Corpuscular Hemoglobin 25.1 pg (27.0-31.0); Mean Corpuscular Volume 81.1 fl (78.0-98.0); Mean Platelet Volume 7.5 fL (7.4-10.4); Platelet Count 234 10x3/uL (130-400); RBC Distribution Width 17.3 % (11.5-14.5); Red Blood Cell (RBC) Count 4.44 mill/uL (4.70-6.10); White Blood Cell (WBC) Count 9.5 10x3/uL (4.8-10.8)
[2022-09-10 06:50] LABS: Anion Gap 13 mmol/L (10-20); BUN (Urea Nitrogen) 27 mg/dL (8.4-25.7); Calc. Creatinine Clearance 62 mL/min (70-130); Calcium 9.3 mg/dL (7.8-10.44); Carbon Dioxide 28 mmol/L (23-31); Chloride 92 mmol/L (98-107); Estimated GFR 67; Glucose 100 mg/dL (83-110); Magnesium 1.7 mg/dL (1.6-2.6); Potassium 4.2 mmol/L (3.5-5.1); Sodium 129 mmol/L (136-145)
[2022-09-10] MEDS: Docusate 100 MG CAP PO SCH (09:25)
[2022-09-10] MEDS: Saccharomyces boulardii 250 MG CAP PO SCH (09:25)
[2022-09-10] MEDS: Apixaban 5 MG TAB PO SCH (09:25)
[2022-09-10] MEDS: Simethicone Chewable 80 MG TAB PO PRN (09:25)
[2022-09-10] MEDS: predniSONE 5 MG TAB PO SCH (09:26)
[2022-09-10] MEDS: Cyanocobalamin (Vitamin B-12) 1,000 MCG TAB PO SCH (09:27)
[2022-09-10] MEDS: Calcium Carbonate 600 MG + Vit D TAB PO SCH (09:28)
[2022-09-10] MEDS: Dronedarone HCl 400 MG TAB PO SCH (09:30)
[2022-09-10] MEDS: Multivitamin W/ Minerals 1 TAB PO SCH (09:31)
[2022-09-10 11:33] VITALS: BP 111/59; TEMP 97.7
== END 2022-09-10 15:41 | DRG 309 ==
LOC: ERS 11:29 → NEURO 14:58
PROVIDERS: ADMIT Internal Medicine; ATTEND Family Medicine
DX: I48.0 Paroxysmal atrial fibrillation (principal); D68.51 Activated protein C resistance; N39.0 Urinary tract infection, site not specified; T83.518A Infection and inflammatory reaction due to other urinary catheter, initial encounter; I82.411 Acute embolism and thrombosis of right femoral vein; I10 Essential (primary) hypertension; E78.5 Hyperlipidemia, unspecified; K52.89 Other specified noninfective gastroenteritis and colitis; C67.9 Malignant neoplasm of bladder, unspecified; I25.10 Atherosclerotic heart disease of native coronary artery without angina pectoris; G47.00 Insomnia, unspecified; Y83.8 Other surgical procedures as the cause of abnormal reaction of the patient, or of later complication, without mention of misadventure at the time of the procedure; Z20.822 Contact with and (suspected) exposure to COVID-19; Z98.890 Other specified postprocedural states; Z90.49 Acquired absence of other specified parts of digestive tract; Z88.8 Allergy status to other drugs, medicaments and biological substances; Z79.01 Long term (current) use of anticoagulants; Z79.899 Other long term (current) drug therapy
CPT/HCPCS: 36415; 71045; 74177; 80048; 80053; 81003; 81015; 82550; 83690; 83735; 83880; 84484; 85025; 87077; 87086; 87186; 93005; J0696; J1100; J1160; J1642; J3475; J3490; J7030; J7050; J7512; Q9967; U0002

== ENCOUNTER 2022-09-29 23:46 | Inpatient (IN) | payer MEDICARE, BC ==
[2022-09-30 00:37] LABS: #Lymphocytes 2.3 thou/uL (1.20-3.40); #Neutrophils 13.7 thou/uL (1.40-6.50); %Eosinophils 0.2 % (0.0-10.0); %Lymphocytes 13.2 % (21.0-51.0); %Monocytes 6.1 % (0.0-10.0); %Neutrophils 80.4 % (42.0-75.0); Hemoglobin 11.1 g/dL (14.0-18.0); Mean Corpuscular Hemoglobin 26.3 pg (27.0-31.0); Mean Corpuscular Volume 79.6 fl (78.0-98.0); Mean Platelet Volume 7.4 fL (7.4-10.4); Platelet Count 311 10x3/uL (130-400); RBC Distribution Width 16.9 % (11.5-14.5); Red Blood Cell (RBC) Count 4.22 mill/uL (4.70-6.10)
[2022-09-30 01:00] LABS: ALT (SGPT) 20 U/L (8-55); AST (SGOT) 16 U/L (5-34); Albumin 2.6 g/dL (3.4-4.8); Alkaline Phosphatase 128 U/L (40-110); Anion Gap 14 mmol/L (10-20); BUN (Urea Nitrogen) 48 mg/dL (8.4-25.7); Bilirubin, Total 0.7 mg/dL (0.2-1.2); Calc. Creatinine Clearance 0 mL/min (70-130); Calcium 8.5 mg/dL (7.8-10.44); Carbon Dioxide 18 mmol/L (23-31); Chloride 104 mmol/L (98-107); Estimated GFR 52; Globulin 2.7 g/dL (2.4-3.5); Glucose 94 mg/dL (83-110); Lipase 14 U/L (8-78); Potassium 3.5 mmol/L (3.5-5.1); Protein, Total 5.3 g/dL (5.8-8.1); Sodium 132 mmol/L (136-145)
[2022-09-30] MEDS ORDERED: Vancomycin 1 GM/200 ML (FROZEN) BAG ONE (02:17)
[2022-09-30] MEDS ORDERED: Ondansetron ODT 4 MG TAB PO PRN (02:41)
[2022-09-30] MEDS ORDERED: metroNIDAZOLE 500 MG in Premix Bag 1 BAG IVPB SCH ×2 (03:00→11:00)
[2022-09-30] MEDS ORDERED: Sodium Chloride 0.9% 1,000 ML IV SCH (03:00)
[2022-09-30 03:14] LABS: Bacteria/HPF None Seen HPF (None Seen); Bilirubin Negative (Negative); Blood, Urine 1+ (Negative); Clarity Clear (Clear); Glucose, Urine (Dipstick) Normal (Negative); Ketone, Urine Trace mg/dL (Negative); Leukocyte Negative Leu/uL (Negative); Nitrite Negative (Negative); Protein, Urine (Dipstick) Negative (Neg-Trace); Specific Gravity, Urine 1.029 (1.002-1.036); Squamous Epithelial None Seen HPF (0-3); Urobilinogen Normal mg/dL (Less than 2); WBC/HPF 21-50 HPF (0-3); pH, Urine 6.5 (5.0-9.0)
[2022-09-30] MEDS ORDERED: Piperacillin/Tazobactam 3.375 GM in Sodium Chloride 0.9% 100 ML IVPB SCH ×3 (04:00→12:00)
[2022-09-30] MEDS ORDERED: Piperacillin/Tazobactam 3.375 GM VIAL ONE (06:40)
[2022-09-30 08:54] LABS: #Eosinphils 0.2 thou/uL (0.0-0.7); #Lymphocytes 1.6 thou/uL (1.20-3.40); #Monocytes 0.8 thou/uL (0.11-0.59); #Neutrophils 10.6 thou/uL (1.40-6.50); %Basophils 0.3 % (0.0-1.0); %Eosinophils 1.2 % (0.0-10.0); %Lymphocytes 12.4 % (21.0-51.0); %Monocytes 6.1 % (0.0-10.0); Hemoglobin 10.3 g/dL (14.0-18.0); Mean Corpuscular HGB CONC 32.9 g/dL (32.0-36.0); Mean Corpuscular Hemoglobin 26.3 pg (27.0-31.0); Mean Platelet Volume 7.1 fL (7.4-10.4); Platelet Count 273 10x3/uL (130-400); RBC Distribution Width 16.6 % (11.5-14.5); Red Blood Cell (RBC) Count 3.92 mill/uL (4.70-6.10); White Blood Cell (WBC) Count 13.3 10x3/uL (4.8-10.8)
[2022-09-30 09:16] LABS: Anion Gap 11 mmol/L (10-20); BUN (Urea Nitrogen) 41 mg/dL (8.4-25.7); Calc. Creatinine Clearance 0 mL/min (70-130); Calcium 7.9 mg/dL (7.8-10.44); Carbon Dioxide 20 mmol/L (23-31); Chloride 106 mmol/L (98-107); Estimated GFR 60; Glucose 84 mg/dL (83-110); Potassium 3.6 mmol/L (3.5-5.1); Sodium 133 mmol/L (136-145)
[2022-09-30] MEDS ORDERED: NS 0.9% w/ 20 MEQ KCL 1,000 ML/1,000 ML BAG IV SCH (09:45)
[2022-09-30] MEDS: Vancomycin HCl 125 MG/5 ML (BATCHED) UDCUP PO SCH ×3 (09:55→22:00)
[2022-09-30] MEDS ORDERED: Dronedarone HCl 400 MG TAB PO SCH (10:00)
[2022-09-30] MEDS ORDERED: Iopamidol-370 76% 500 ML MDV (1 ML CHARGE) ONE (10:51)
[2022-09-30 13:35] LABS: SARS-CoV-2 NAA Rapid Test Not Detected (NotDetected)
[2022-09-30] MEDS: Dronedarone HCl 400 MG TAB PO SCH (17:42)
[2022-09-30] MEDS: NS 0.9% w/ 20 MEQ KCL 1,000 ML/1,000 ML BAG IV SCH (19:55)
[2022-09-30] MEDS: metroNIDAZOLE 500 MG in Premix Bag 1 BAG IVPB SCH (21:48)
[2022-09-30] MEDS: Acetaminophen 325 MG TAB PO PRN (22:19)
[2022-09-30] MEDS: Melatonin 3 MG TAB PO PRN (23:04)
[2022-10-01] MEDS: Vancomycin HCl 125 MG/5 ML (BATCHED) UDCUP PO SCH ×5 (03:55→20:31)
[2022-10-01] MEDS: metroNIDAZOLE 500 MG in Premix Bag 1 BAG IVPB SCH ×3 (04:38→20:32)
[2022-10-01] MEDS: Acetaminophen 325 MG TAB PO PRN (04:39)
[2022-10-01 08:51] LABS: Anion Gap 11 mmol/L (10-20); BUN (Urea Nitrogen) 28 mg/dL (8.4-25.7); Calc. Creatinine Clearance 67 mL/min (70-130); Calcium 7.8 mg/dL (7.8-10.44); Carbon Dioxide 18 mmol/L (23-31); Chloride 111 mmol/L (98-107); Estimated GFR 77; Glucose 80 mg/dL (83-110); Magnesium 1.5 mg/dL (1.6-2.6); Phosphorus 1.9 mg/dL (2.3-4.7); Potassium 3.5 mmol/L (3.5-5.1); Sodium 136 mmol/L (136-145)
[2022-10-01] MEDS: Dronedarone HCl 400 MG TAB PO SCH ×2 (08:52→18:20)
[2022-10-01] MEDS ORDERED: Magnesium 2 GM/50 ML(in water) 2 GM in Premix Bag 1 BAG IVPB SCH (09:30)
[2022-10-01] MEDS: NS 0.9% w/ 20 MEQ KCL 1,000 ML/1,000 ML BAG IV SCH ×2 (10:18→20:31)
[2022-10-01] MEDS: Ondansetron PF 4 MG/2 ML Vial IVP PRN ×2 (15:17→20:30)
[2022-10-01] MEDS ORDERED: Morphine 2 MG/ML VIAL SLOW IVP SCH (19:30)
[2022-10-01] MEDS: Rosuvastatin 10 MG TAB PO SCH (20:32)
[2022-10-02] MEDS: Vancomycin HCl 125 MG/5 ML (BATCHED) UDCUP PO SCH ×4 (03:54→21:24)
[2022-10-02] MEDS: Acetaminophen 325 MG TAB PO PRN (03:57)
[2022-10-02] MEDS: metroNIDAZOLE 500 MG in Premix Bag 1 BAG IVPB SCH ×3 (03:57→20:59)
[2022-10-02 06:16] LABS: #Eosinphils 0.1 thou/uL (0.0-0.7); #Lymphocytes 1.5 thou/uL (1.20-3.40); #Monocytes 0.7 thou/uL (0.11-0.59); #Neutrophils 10.8 thou/uL (1.40-6.50); %Basophils 0.1 % (0.0-1.0); %Eosinophils 0.6 % (0.0-10.0); %Lymphocytes 11.5 % (21.0-51.0); %Monocytes 5.5 % (0.0-10.0); %Neutrophils 82.3 % (42.0-75.0); Hemoglobin 10.9 g/dL (14.0-18.0); Mean Corpuscular HGB CONC 31.9 g/dL (32.0-36.0); Mean Corpuscular Volume 81.3 fl (78.0-98.0); Mean Platelet Volume 7.2 fL (7.4-10.4); Platelet Count 258 10x3/uL (130-400); Red Blood Cell (RBC) Count 4.21 mill/uL (4.70-6.10); White Blood Cell (WBC) Count 13.1 10x3/uL (4.8-10.8)
[2022-10-02 06:53] LABS: Anion Gap 10 mmol/L (10-20); BUN (Urea Nitrogen) 19 mg/dL (8.4-25.7); Calc. Creatinine Clearance 85 mL/min (70-130); Calcium 7.7 mg/dL (7.8-10.44); Carbon Dioxide 18 mmol/L (23-31); Chloride 113 mmol/L (98-107); Estimated GFR 89; Glucose 85 mg/dL (83-110); Potassium 3.6 mmol/L (3.5-5.1); Sodium 137 mmol/L (136-145)
[2022-10-02] MEDS: Dronedarone HCl 400 MG TAB PO SCH ×2 (09:41→18:04)
[2022-10-02] MEDS: NS 0.9% w/ 20 MEQ KCL 1,000 ML/1,000 ML BAG IV SCH ×2 (09:49→23:00)
[2022-10-02] MEDS ORDERED: MD-Gastroview 120 ML BOT ONE (12:17)
[2022-10-02] MEDS ORDERED: Morphine 2 MG/ML VIAL SLOW IVP SCH (21:15)
[2022-10-02] MEDS: Rosuvastatin 10 MG TAB PO SCH (21:23)
[2022-10-03] MEDS: metroNIDAZOLE 500 MG in Premix Bag 1 BAG IVPB SCH ×3 (03:52→20:57)
[2022-10-03] MEDS: Vancomycin HCl 125 MG/5 ML (BATCHED) UDCUP PO SCH ×4 (03:53→20:57)
[2022-10-03 06:19] LABS: #Eosinphils 0.1 thou/uL (0.0-0.7); #Lymphocytes 1.3 thou/uL (1.20-3.40); #Monocytes 0.7 thou/uL (0.11-0.59); #Neutrophils 10.9 thou/uL (1.40-6.50); %Basophils 0.1 % (0.0-1.0); %Eosinophils 0.9 % (0.0-10.0); %Lymphocytes 9.9 % (21.0-51.0); %Monocytes 5.4 % (0.0-10.0); %Neutrophils 83.7 % (42.0-75.0); Mean Corpuscular HGB CONC 31.7 g/dL (32.0-36.0); Mean Corpuscular Hemoglobin 25.9 pg (27.0-31.0); Mean Corpuscular Volume 81.8 fl (78.0-98.0); Platelet Count 286 10x3/uL (130-400); RBC Distribution Width 17.4 % (11.5-14.5); Red Blood Cell (RBC) Count 4.25 mill/uL (4.70-6.10)
[2022-10-03 06:44] LABS: Anion Gap 9 mmol/L (10-20); BUN (Urea Nitrogen) 18 mg/dL (8.4-25.7); Calc. Creatinine Clearance 73 mL/min (70-130); Calcium 8.2 mg/dL (7.8-10.44); Carbon Dioxide 23 mmol/L (23-31); Chloride 113 mmol/L (98-107); Estimated GFR 85; Glucose 103 mg/dL (83-110); Magnesium 1.9 mg/dL (1.6-2.6); Potassium 3.7 mmol/L (3.5-5.1); Sodium 141 mmol/L (136-145)
[2022-10-03] MEDS: Dronedarone HCl 400 MG TAB PO SCH ×2 (09:10→16:31)
[2022-10-03] MEDS: Saccharomyces boulardii 250 MG CAP PO SCH (09:10)
[2022-10-03] MEDS: NS 0.9% w/ 20 MEQ KCL 1,000 ML/1,000 ML BAG IV SCH (12:16)
[2022-10-03] MEDS: Rosuvastatin 10 MG TAB PO SCH (20:57)
[2022-10-04] MEDS: Acetaminophen 325 MG TAB PO PRN ×2 (01:46→20:41)
[2022-10-04] MEDS: Melatonin 3 MG TAB PO PRN ×2 (01:46→20:42)
[2022-10-04] MEDS: metroNIDAZOLE 500 MG in Premix Bag 1 BAG IVPB SCH ×3 (03:01→20:42)
[2022-10-04] MEDS: Vancomycin HCl 125 MG/5 ML (BATCHED) UDCUP PO SCH ×4 (03:01→20:42)
[2022-10-04] MEDS: NS 0.9% w/ 20 MEQ KCL 1,000 ML/1,000 ML BAG IV SCH ×2 (06:25→16:18)
[2022-10-04 06:56] LABS: #Eosinphils 0.1 thou/uL (0.0-0.7); #Monocytes 0.6 thou/uL (0.11-0.59); #Neutrophils 10.3 thou/uL (1.40-6.50); %Lymphocytes 15.3 % (21.0-51.0); %Monocytes 4.9 % (0.0-10.0); %Neutrophils 78.8 % (42.0-75.0); Hemoglobin 10.4 g/dL (14.0-18.0); Mean Corpuscular HGB CONC 31.7 g/dL (32.0-36.0); Mean Corpuscular Hemoglobin 25.8 pg (27.0-31.0); Mean Corpuscular Volume 81.3 fl (78.0-98.0); Mean Platelet Volume 7.1 fL (7.4-10.4); Platelet Count 283 10x3/uL (130-400); RBC Distribution Width 17.4 % (11.5-14.5); Red Blood Cell (RBC) Count 4.04 mill/uL (4.70-6.10); White Blood Cell (WBC) Count 13.1 10x3/uL (4.8-10.8)
[2022-10-04 07:08] LABS: Anion Gap 10 mmol/L (10-20); BUN (Urea Nitrogen) 16 mg/dL (8.4-25.7); Calc. Creatinine Clearance 85 mL/min (70-130); Calcium 8.1 mg/dL (7.8-10.44); Carbon Dioxide 18 mmol/L (23-31); Chloride 116 mmol/L (98-107); Estimated GFR 89; Glucose 95 mg/dL (83-110); Potassium 3.7 mmol/L (3.5-5.1); Sodium 140 mmol/L (136-145)
[2022-10-04] MEDS: Dronedarone HCl 400 MG TAB PO SCH ×2 (09:24→18:09)
[2022-10-04] MEDS: Saccharomyces boulardii 250 MG CAP PO SCH (09:24)
[2022-10-04] MEDS ORDERED: Linezolid 600 MG TAB PO SCH (15:45)
[2022-10-04] MEDS: Rosuvastatin 10 MG TAB PO SCH (20:42)
[2022-10-04] MEDS: Linezolid 600 MG TAB PO SCH (20:42)
[2022-10-05] MEDS: Acetaminophen 325 MG TAB PO PRN ×2 (02:17→20:49)
[2022-10-05] MEDS: Vancomycin HCl 125 MG/5 ML (BATCHED) UDCUP PO SCH ×4 (02:17→20:48)
[2022-10-05] MEDS: metroNIDAZOLE 500 MG in Premix Bag 1 BAG IVPB SCH ×3 (04:19→20:48)
[2022-10-05] MEDS: NS 0.9% w/ 20 MEQ KCL 1,000 ML/1,000 ML BAG IV SCH ×2 (05:52→17:28)
[2022-10-05 07:52] LABS: #Lymphocytes 1.4 thou/uL (1.20-3.40); #Monocytes 0.6 thou/uL (0.11-0.59); #Neutrophils 10.9 thou/uL (1.40-6.50); %Basophils 0.1 % (0.0-1.0); %Eosinophils 0.3 % (0.0-10.0); %Lymphocytes 11.1 % (21.0-51.0); %Monocytes 4.6 % (0.0-10.0); %Neutrophils 83.9 % (42.0-75.0); Hemoglobin 10.6 g/dL (14.0-18.0); Mean Corpuscular HGB CONC 32.2 g/dL (32.0-36.0); Mean Corpuscular Hemoglobin 26.2 pg (27.0-31.0); Mean Corpuscular Volume 81.5 fl (78.0-98.0); Platelet Count 266 10x3/uL (130-400); RBC Distribution Width 17.6 % (11.5-14.5); Red Blood Cell (RBC) Count 4.04 mill/uL (4.70-6.10)
[2022-10-05 08:01] LABS: Anion Gap 13 mmol/L (10-20); BUN (Urea Nitrogen) 15 mg/dL (8.4-25.7); Calc. Creatinine Clearance 85 mL/min (70-130); Calcium 7.9 mg/dL (7.8-10.44); Carbon Dioxide 15 mmol/L (23-31); Chloride 115 mmol/L (98-107); Estimated GFR 89; Glucose 80 mg/dL (83-110); Potassium 3.7 mmol/L (3.5-5.1); Sodium 139 mmol/L (136-145)
[2022-10-05] MEDS: Dronedarone HCl 400 MG TAB PO SCH ×2 (09:15→16:00)
[2022-10-05] MEDS: Linezolid 600 MG TAB PO SCH ×2 (09:16→20:48)
[2022-10-05] MEDS: Saccharomyces boulardii 250 MG CAP PO SCH (09:16)
[2022-10-05] MEDS: Melatonin 3 MG TAB PO PRN (20:48)
[2022-10-05] MEDS: Rosuvastatin 10 MG TAB PO SCH (20:48)
[2022-10-06] MEDS: metroNIDAZOLE 500 MG in Premix Bag 1 BAG IVPB SCH ×3 (04:11→20:38)
[2022-10-06] MEDS: Vancomycin HCl 125 MG/5 ML (BATCHED) UDCUP PO SCH ×4 (04:11→20:39)
[2022-10-06 07:14] LABS: #Eosinphils 0.1 thou/uL (0.0-0.7); #Lymphocytes 1.6 thou/uL (1.20-3.40); #Monocytes 0.7 thou/uL (0.11-0.59); #Neutrophils 12.2 thou/uL (1.40-6.50); %Basophils 0.1 % (0.0-1.0); %Eosinophils 0.8 % (0.0-10.0); %Lymphocytes 10.9 % (21.0-51.0); %Neutrophils 83.2 % (42.0-75.0); Hemoglobin 10.7 g/dL (14.0-18.0); Mean Corpuscular HGB CONC 31.2 g/dL (32.0-36.0); Mean Corpuscular Hemoglobin 25.4 pg (27.0-31.0); Mean Corpuscular Volume 81.6 fl (78.0-98.0); Mean Platelet Volume 7.3 fL (7.4-10.4); Platelet Count 280 10x3/uL (130-400); RBC Distribution Width 17.7 % (11.5-14.5); Red Blood Cell (RBC) Count 4.19 mill/uL (4.70-6.10); White Blood Cell (WBC) Count 14.7 10x3/uL (4.8-10.8)
[2022-10-06 07:35] LABS: Anion Gap 14 mmol/L (10-20); BUN (Urea Nitrogen) 15 mg/dL (8.4-25.7); Calc. Creatinine Clearance 75 mL/min (70-130); Calcium 7.8 mg/dL (7.8-10.44); Carbon Dioxide 14 mmol/L (23-31); Chloride 115 mmol/L (98-107); Estimated GFR 86; Glucose 59 mg/dL (83-110); Potassium 3.8 mmol/L (3.5-5.1); Sodium 139 mmol/L (136-145)
[2022-10-06] MEDS: Saccharomyces boulardii 250 MG CAP PO SCH (09:09)
[2022-10-06] MEDS: Dronedarone HCl 400 MG TAB PO SCH ×2 (09:09→16:30)
[2022-10-06] MEDS: Linezolid 600 MG TAB PO SCH (09:10)
[2022-10-06] MEDS: NS 0.9% w/ 20 MEQ KCL 1,000 ML/1,000 ML BAG IV SCH ×2 (09:17→21:56)
[2022-10-06] MEDS: Acetaminophen 325 MG TAB PO PRN (20:41)
[2022-10-06] MEDS: Melatonin 3 MG TAB PO PRN (20:41)
[2022-10-06] MEDS: Rosuvastatin 10 MG TAB PO SCH (20:41)
[2022-10-07] MEDS: NS 0.9% w/ 20 MEQ KCL 1,000 ML/1,000 ML BAG IV SCH ×2 (02:49→18:16)
[2022-10-07] MEDS: metroNIDAZOLE 500 MG in Premix Bag 1 BAG IVPB SCH ×3 (04:37→20:22)
[2022-10-07] MEDS: Vancomycin HCl 125 MG/5 ML (BATCHED) UDCUP PO SCH ×4 (04:37→20:24)
[2022-10-07 07:36] LABS: Anion Gap 8 mmol/L (10-20); BUN (Urea Nitrogen) 15 mg/dL (8.4-25.7); Calc. Creatinine Clearance 70 mL/min (70-130); Calcium 7.7 mg/dL (7.8-10.44); Carbon Dioxide 18 mmol/L (23-31); Chloride 117 mmol/L (98-107); Estimated GFR 81; Glucose 137 mg/dL (83-110); Potassium 3.9 mmol/L (3.5-5.1); Sodium 139 mmol/L (136-145)
[2022-10-07 07:46] LABS: #Eosinphils 0.1 thou/uL (0.0-0.7); #Lymphocytes 1.2 thou/uL (1.20-3.40); #Monocytes 0.8 thou/uL (0.11-0.59); #Neutrophils 11.2 thou/uL (1.40-6.50); %Basophils 0.1 % (0.0-1.0); %Eosinophils 0.6 % (0.0-10.0); %Lymphocytes 8.6 % (21.0-51.0); %Monocytes 6.2 % (0.0-10.0); %Neutrophils 84.4 % (42.0-75.0); Hemoglobin 10.8 g/dL (14.0-18.0); Mean Corpuscular HGB CONC 31.4 g/dL (32.0-36.0); Mean Corpuscular Hemoglobin 25.7 pg (27.0-31.0); Mean Corpuscular Volume 81.7 fl (78.0-98.0); Mean Platelet Volume 7.7 fL (7.4-10.4); Platelet Count 268 10x3/uL (130-400); RBC Distribution Width 17.8 % (11.5-14.5); Red Blood Cell (RBC) Count 4.22 mill/uL (4.70-6.10); White Blood Cell (WBC) Count 13.3 10x3/uL (4.8-10.8)
[2022-10-07] MEDS: Dronedarone HCl 400 MG TAB PO SCH ×2 (09:37→17:34)
[2022-10-07] MEDS: Saccharomyces boulardii 250 MG CAP PO SCH (09:37)
[2022-10-07] MEDS: Rosuvastatin 10 MG TAB PO SCH (20:23)
[2022-10-07] MEDS: Melatonin 3 MG TAB PO PRN (20:24)
[2022-10-07] MEDS: Acetaminophen 325 MG TAB PO PRN (20:25)
[2022-10-08] MEDS: Ondansetron PF 4 MG/2 ML Vial IVP PRN ×2 (02:28→08:55)
[2022-10-08] MEDS: Vancomycin HCl 125 MG/5 ML (BATCHED) UDCUP PO SCH ×4 (02:37→20:48)
[2022-10-08] MEDS: metroNIDAZOLE 500 MG in Premix Bag 1 BAG IVPB SCH ×3 (03:31→20:44)
[2022-10-08] MEDS ORDERED: Sodium Chloride 0.9% 500 ML IV SCH (04:30)
[2022-10-08] MEDS ORDERED: Promethazine HCl 12.5 MG in Sodium Chloride 0.9% 50 ML IVPB SCH ×2 (04:30→07:00)
[2022-10-08 05:01] LABS: #Eosinphils 0.1 thou/uL (0.0-0.7); #Lymphocytes 1.2 thou/uL (1.20-3.40); #Monocytes 0.7 thou/uL (0.11-0.59); #Neutrophils 13.7 thou/uL (1.40-6.50); %Basophils 0.1 % (0.0-1.0); %Eosinophils 0.4 % (0.0-10.0); %Lymphocytes 7.9 % (21.0-51.0); %Monocytes 4.4 % (0.0-10.0); %Neutrophils 87.3 % (42.0-75.0); Hemoglobin 11.7 g/dL (14.0-18.0); Mean Corpuscular HGB CONC 32.6 g/dL (32.0-36.0); Mean Corpuscular Hemoglobin 26.4 pg (27.0-31.0); Mean Corpuscular Volume 80.9 fl (78.0-98.0); Mean Platelet Volume 8.1 fL (7.4-10.4); Platelet Count 260 10x3/uL (130-400); RBC Distribution Width 18.6 % (11.5-14.5); Red Blood Cell (RBC) Count 4.43 mill/uL (4.70-6.10); White Blood Cell (WBC) Count 15.7 10x3/uL (4.8-10.8)
[2022-10-08 05:12] LABS: Anion Gap 11 mmol/L (10-20); BUN (Urea Nitrogen) 14 mg/dL (8.4-25.7); Calc. Creatinine Clearance 77 mL/min (70-130); Calcium 8.1 mg/dL (7.8-10.44); Carbon Dioxide 14 mmol/L (23-31); Chloride 117 mmol/L (98-107); Estimated GFR 86; Glucose 118 mg/dL (83-110); Magnesium 1.4 mg/dL (1.6-2.6); Potassium 3.9 mmol/L (3.5-5.1); Sodium 138 mmol/L (136-145)
[2022-10-08] MEDS ORDERED: Magnesium 2 GM/50 ML(in water) 2 GM in Premix Bag 1 BAG IVPB SCH ×2 (06:30→08:00)
[2022-10-08] MEDS: Calcium Carbonate 500 MG ChewTAB PO PRN ×2 (10:41→14:48)
[2022-10-08] MEDS: Dronedarone HCl 400 MG TAB PO SCH ×2 (10:43→17:09)
[2022-10-08] MEDS: Saccharomyces boulardii 250 MG CAP PO SCH (10:43)
[2022-10-08] MEDS: NS 0.9% w/ 20 MEQ KCL 1,000 ML/1,000 ML BAG IV SCH (12:14)
[2022-10-08] MEDS: Acetaminophen 325 MG TAB PO PRN (20:48)
[2022-10-08] MEDS: Melatonin 3 MG TAB PO PRN (20:48)
[2022-10-08] MEDS: Rosuvastatin 10 MG TAB PO SCH (20:49)
[2022-10-09] MEDS: Vancomycin HCl 125 MG/5 ML (BATCHED) UDCUP PO SCH ×4 (03:10→20:43)
[2022-10-09] MEDS: metroNIDAZOLE 500 MG in Premix Bag 1 BAG IVPB SCH ×3 (03:11→20:43)
[2022-10-09] MEDS: NS 0.9% w/ 20 MEQ KCL 1,000 ML/1,000 ML BAG IV SCH (05:57)
[2022-10-09 08:05] LABS: #Eosinphils 0.1 thou/uL (0.0-0.7); #Lymphocytes 1.2 thou/uL (1.20-3.40); #Monocytes 0.6 thou/uL (0.11-0.59); #Neutrophils 12.8 thou/uL (1.40-6.50); %Basophils 0.1 % (0.0-1.0); %Eosinophils 0.4 % (0.0-10.0); %Lymphocytes 8.3 % (21.0-51.0); %Monocytes 4.3 % (0.0-10.0); %Neutrophils 86.9 % (42.0-75.0); Hemoglobin 10.7 g/dL (14.0-18.0); Mean Corpuscular HGB CONC 32.4 g/dL (32.0-36.0); Mean Corpuscular Hemoglobin 26.4 pg (27.0-31.0); Mean Corpuscular Volume 81.6 fl (78.0-98.0); Mean Platelet Volume 7.9 fL (7.4-10.4); Platelet Count 250 10x3/uL (130-400); RBC Distribution Width 18.5 % (11.5-14.5); Red Blood Cell (RBC) Count 4.03 mill/uL (4.70-6.10); White Blood Cell (WBC) Count 14.7 10x3/uL (4.8-10.8)
[2022-10-09 08:23] LABS: Anion Gap 10 mmol/L (10-20); BUN (Urea Nitrogen) 21 mg/dL (8.4-25.7); Calc. Creatinine Clearance 77 mL/min (70-130); Calcium 7.9 mg/dL (7.8-10.44); Carbon Dioxide 15 mmol/L (23-31); Chloride 120 mmol/L (98-107); Estimated GFR 86; Glucose 85 mg/dL (83-110); Potassium 3.8 mmol/L (3.5-5.1); Sodium 141 mmol/L (136-145)
[2022-10-09] MEDS: Saccharomyces boulardii 250 MG CAP PO SCH (08:56)
[2022-10-09] MEDS: Ondansetron PF 4 MG/2 ML Vial IVP PRN (08:56)
[2022-10-09] MEDS: Dronedarone HCl 400 MG TAB PO SCH ×2 (08:56→17:18)
[2022-10-09] MEDS: Dextrose 5 %-0.45 % NaCl 1,000 ML IV SCH (08:59)
[2022-10-09] MEDS: Multivitamins, Adult 10 ML, TRACE ELEMENT CONCENTRATE 1 ML in D15W-AA 5% with Lytes 2,0... IV SCH (14:42)
[2022-10-09] MEDS: Acetaminophen 325 MG TAB PO PRN ×2 (17:12→20:43)
[2022-10-09] MEDS: Melatonin 3 MG TAB PO PRN (20:43)
[2022-10-09] MEDS: Rosuvastatin 10 MG TAB PO SCH (20:44)
[2022-10-10] MEDS: Dextrose 5 %-0.45 % NaCl 1,000 ML IV SCH ×2 (01:34→09:36)
[2022-10-10] MEDS: metroNIDAZOLE 500 MG in Premix Bag 1 BAG IVPB SCH ×3 (03:08→20:27)
[2022-10-10] MEDS: Vancomycin HCl 125 MG/5 ML (BATCHED) UDCUP PO SCH ×4 (03:08→20:30)
[2022-10-10 06:18] LABS: #Eosinphils 0.2 thou/uL (0.0-0.7); #Lymphocytes 1.2 thou/uL (1.20-3.40); #Monocytes 0.7 thou/uL (0.11-0.59); #Neutrophils 12.1 thou/uL (1.40-6.50); %Eosinophils 1.5 % (0.0-10.0); %Lymphocytes 8.5 % (21.0-51.0); Hemoglobin 9.5 g/dL (14.0-18.0); Mean Corpuscular HGB CONC 32.2 g/dL (32.0-36.0); Mean Corpuscular Hemoglobin 26.5 pg (27.0-31.0); Mean Corpuscular Volume 82.3 fl (78.0-98.0); Mean Platelet Volume 7.5 fL (7.4-10.4); Platelet Count 183 10x3/uL (130-400); RBC Distribution Width 18.7 % (11.5-14.5); Red Blood Cell (RBC) Count 3.59 mill/uL (4.70-6.10); White Blood Cell (WBC) Count 14.3 10x3/uL (4.8-10.8)
[2022-10-10 06:43] LABS: Anion Gap 7 mmol/L (10-20); BUN (Urea Nitrogen) 23 mg/dL (8.4-25.7); Calc. Creatinine Clearance 77 mL/min (70-130); Calcium 7.5 mg/dL (7.8-10.44); Carbon Dioxide 17 mmol/L (23-31); Chloride 119 mmol/L (98-107); Estimated GFR 86; Glucose 182 mg/dL (83-110); Potassium 3.5 mmol/L (3.5-5.1); Sodium 139 mmol/L (136-145)
[2022-10-10] MEDS: Dronedarone HCl 400 MG TAB PO SCH ×2 (08:22→16:58)
[2022-10-10] MEDS: Saccharomyces boulardii 250 MG CAP PO SCH (08:22)
[2022-10-10] MEDS: TRACE ELEMENT IV SCH (14:17)
[2022-10-10] MEDS: MULTIVITAMINS IV SCH (14:17)
[2022-10-10] MEDS: [UNRECOGNIZED DRUG - OTHER] IV SCH (14:17)
[2022-10-10] MEDS: FAT EMULSION IV SCH (14:17)
[2022-10-10] MEDS: Rosuvastatin 10 MG TAB PO SCH (20:30)
[2022-10-10] MEDS: Acetaminophen 325 MG TAB PO PRN (22:03)
[2022-10-10] MEDS: Melatonin 3 MG TAB PO PRN (22:03)
[2022-10-11] MEDS: Dextrose 5 %-0.45 % NaCl 1,000 ML IV SCH ×2 (02:13→08:53)
[2022-10-11] MEDS: metroNIDAZOLE 500 MG in Premix Bag 1 BAG IVPB SCH ×3 (03:32→20:24)
[2022-10-11] MEDS: Vancomycin HCl 125 MG/5 ML (BATCHED) UDCUP PO SCH ×4 (03:32→20:25)
[2022-10-11 04:03] LABS: #Eosinphils 0.3 thou/uL (0.0-0.7); #Lymphocytes 1.2 thou/uL (1.20-3.40); #Monocytes 0.7 thou/uL (0.11-0.59); #Neutrophils 11.8 thou/uL (1.40-6.50); %Basophils 0.2 % (0.0-1.0); %Eosinophils 1.9 % (0.0-10.0); %Lymphocytes 8.6 % (21.0-51.0); %Monocytes 4.9 % (0.0-10.0); %Neutrophils 84.4 % (42.0-75.0); Hemoglobin 9.7 g/dL (14.0-18.0); Mean Corpuscular HGB CONC 32.4 g/dL (32.0-36.0); Mean Corpuscular Hemoglobin 26.4 pg (27.0-31.0); Mean Corpuscular Volume 81.7 fl (78.0-98.0); Mean Platelet Volume 7.8 fL (7.4-10.4); Platelet Count 174 10x3/uL (130-400); RBC Distribution Width 18.8 % (11.5-14.5); Red Blood Cell (RBC) Count 3.68 mill/uL (4.70-6.10)
[2022-10-11 04:21] LABS: Anion Gap 8 mmol/L (10-20); BUN (Urea Nitrogen) 22 mg/dL (8.4-25.7); Calc. Creatinine Clearance 92 mL/min (70-130); Calcium 7.4 mg/dL (7.8-10.44); Carbon Dioxide 17 mmol/L (23-31); Chloride 117 mmol/L (98-107); Estimated GFR 91; Glucose 190 mg/dL (83-110); Potassium 3.2 mmol/L (3.5-5.1); Sodium 139 mmol/L (136-145)
[2022-10-11] MEDS: Dronedarone HCl 400 MG TAB PO SCH ×2 (08:51→17:48)
[2022-10-11] MEDS: Saccharomyces boulardii 250 MG CAP PO SCH (08:51)
[2022-10-11] MEDS: Multivitamins, Adult 10 ML, TRACE ELEMENT CONCENTRATE 1 ML in D15W-AA 5% with Lytes 2,0... IV SCH (14:31)
[2022-10-11] MEDS: Rosuvastatin 10 MG TAB PO SCH (20:25)
[2022-10-11] MEDS: Melatonin 3 MG TAB PO PRN (21:58)
[2022-10-11] MEDS: Acetaminophen 325 MG TAB PO PRN (21:58)
[2022-10-12] MEDS: Vancomycin HCl 125 MG/5 ML (BATCHED) UDCUP PO SCH ×4 (03:35→19:52)
[2022-10-12] MEDS: metroNIDAZOLE 500 MG in Premix Bag 1 BAG IVPB SCH ×3 (04:40→19:51)
[2022-10-12] MEDS: Dextrose 5 %-0.45 % NaCl 1,000 ML IV SCH ×2 (05:14→16:32)
[2022-10-12 07:29] LABS: #Eosinphils 0.2 thou/uL (0.0-0.7); #Lymphocytes 1.1 thou/uL (1.20-3.40); #Monocytes 0.8 thou/uL (0.11-0.59); #Neutrophils 9.1 thou/uL (1.40-6.50); %Eosinophils 1.5 % (0.0-10.0); %Lymphocytes 9.5 % (21.0-51.0); %Monocytes 7.1 % (0.0-10.0); %Neutrophils 81.9 % (42.0-75.0); Hemoglobin 9.4 g/dL (14.0-18.0); Mean Corpuscular HGB CONC 32.2 g/dL (32.0-36.0); Mean Corpuscular Hemoglobin 26.3 pg (27.0-31.0); Mean Corpuscular Volume 81.6 fl (78.0-98.0); Mean Platelet Volume 8.4 fL (7.4-10.4); Platelet Count 152 10x3/uL (130-400); RBC Distribution Width 19.1 % (11.5-14.5); Red Blood Cell (RBC) Count 3.56 mill/uL (4.70-6.10); White Blood Cell (WBC) Count 11.2 10x3/uL (4.8-10.8)
[2022-10-12 07:49] LABS: Anion Gap 7 mmol/L (10-20); BUN (Urea Nitrogen) 23 mg/dL (8.4-25.7); Calc. Creatinine Clearance 99 mL/min (70-130); Calcium 7.2 mg/dL (7.8-10.44); Carbon Dioxide 18 mmol/L (23-31); Chloride 115 mmol/L (98-107); Estimated GFR 93; Glucose 164 mg/dL (83-110); Potassium 3.2 mmol/L (3.5-5.1); Sodium 137 mmol/L (136-145)
[2022-10-12] MEDS: Saccharomyces boulardii 250 MG CAP PO SCH (09:16)
[2022-10-12] MEDS: Dronedarone HCl 400 MG TAB PO SCH ×2 (09:16→16:32)
[2022-10-12] MEDS: Multivitamins, Adult 10 ML, TRACE ELEMENT CONCENTRATE 1 ML in D15W-AA 5% with Lytes 2,0... IV SCH (14:24)
[2022-10-12] MEDS: Rosuvastatin 10 MG TAB PO SCH (19:52)
[2022-10-12] MEDS: Acetaminophen 325 MG TAB PO PRN (19:55)
[2022-10-12] MEDS: Melatonin 3 MG TAB PO PRN (19:55)
[2022-10-13] MEDS: metroNIDAZOLE 500 MG in Premix Bag 1 BAG IVPB SCH ×3 (03:56→20:33)
[2022-10-13] MEDS: Vancomycin HCl 125 MG/5 ML (BATCHED) UDCUP PO SCH ×4 (04:03→20:33)
[2022-10-13 05:39] LABS: #Eosinphils 0.1 thou/uL (0.0-0.7); #Lymphocytes 1.1 thou/uL (1.20-3.40); #Monocytes 0.8 thou/uL (0.11-0.59); #Neutrophils 9.8 thou/uL (1.40-6.50); %Basophils 0.1 % (0.0-1.0); %Eosinophils 0.6 % (0.0-10.0); %Lymphocytes 9.3 % (21.0-51.0); Hemoglobin 9.8 g/dL (14.0-18.0); Mean Corpuscular HGB CONC 31.7 g/dL (32.0-36.0); Mean Corpuscular Hemoglobin 25.9 pg (27.0-31.0); Mean Corpuscular Volume 81.8 fl (78.0-98.0); Mean Platelet Volume 9.2 fL (7.4-10.4); Platelet Count 164 10x3/uL (130-400); RBC Distribution Width 19.4 % (11.5-14.5); Red Blood Cell (RBC) Count 3.77 mill/uL (4.70-6.10); White Blood Cell (WBC) Count 11.8 10x3/uL (4.8-10.8)
[2022-10-13 06:03] LABS: Anion Gap 11 mmol/L (10-20); BUN (Urea Nitrogen) 26 mg/dL (8.4-25.7); Calc. Creatinine Clearance 85 mL/min (70-130); Calcium 7.5 mg/dL (7.8-10.44); Carbon Dioxide 15 mmol/L (23-31); Chloride 113 mmol/L (98-107); Estimated GFR 89; Glucose 85 mg/dL (83-110); Potassium 3.3 mmol/L (3.5-5.1); Sodium 136 mmol/L (136-145)
[2022-10-13] MEDS: Dextrose 5 %-0.45 % NaCl 1,000 ML IV SCH ×2 (09:07→20:33)
[2022-10-13] MEDS: Dronedarone HCl 400 MG TAB PO SCH ×2 (09:08→16:26)
[2022-10-13] MEDS: Saccharomyces boulardii 250 MG CAP PO SCH (09:08)
[2022-10-13] MEDS: [UNRECOGNIZED DRUG - OTHER] IV SCH (14:38)
[2022-10-13] MEDS: TRACE ELEMENT IV SCH (14:38)
[2022-10-13] MEDS: FAT EMULSION IV SCH (14:38)
[2022-10-13] MEDS: MULTIVITAMINS IV SCH (14:38)
[2022-10-13] MEDS: Acetaminophen 325 MG TAB PO PRN (20:33)
[2022-10-13] MEDS: Melatonin 3 MG TAB PO PRN (20:33)
[2022-10-13] MEDS: Rosuvastatin 10 MG TAB PO SCH (20:33)
[2022-10-14] MEDS: Vancomycin HCl 125 MG/5 ML (BATCHED) UDCUP PO SCH ×4 (04:00→21:04)
[2022-10-14] MEDS: metroNIDAZOLE 500 MG in Premix Bag 1 BAG IVPB SCH ×3 (04:36→20:53)
[2022-10-14 06:34] LABS: Calcium 7.7 mg/dL (7.8-10.44); Chloride 107 mmol/L (98-107); Potassium 4.2 mmol/L (3.5-5.1); Sodium 129 mmol/L (136-145)
[2022-10-14 06:35] LABS: Glucose 595 mg/dL (83-110)
[2022-10-14 06:36] LABS: Anion Gap 11 mmol/L (10-20); Carbon Dioxide 15 mmol/L (23-31)
[2022-10-14 06:38] LABS: Calc. Creatinine Clearance 75 mL/min (70-130); Estimated GFR 86
[2022-10-14 06:39] LABS: BUN (Urea Nitrogen) 26 mg/dL (8.4-25.7)
[2022-10-14 07:48] LABS: #Eosinphils 0.2 thou/uL (0.0-0.7); #Lymphocytes 1.1 thou/uL (1.20-3.40); #Monocytes 0.7 thou/uL (0.11-0.59); #Neutrophils 10.4 thou/uL (1.40-6.50); %Basophils 0.1 % (0.0-1.0); %Eosinophils 1.6 % (0.0-10.0); %Lymphocytes 8.7 % (21.0-51.0); %Monocytes 5.4 % (0.0-10.0); %Neutrophils 84.2 % (42.0-75.0); Hemoglobin 9.8 g/dL (14.0-18.0); Mean Corpuscular HGB CONC 32.1 g/dL (32.0-36.0); Mean Corpuscular Hemoglobin 26.3 pg (27.0-31.0); Mean Platelet Volume 8.9 fL (7.4-10.4); Platelet Count 161 10x3/uL (130-400); Red Blood Cell (RBC) Count 3.73 mill/uL (4.70-6.10); White Blood Cell (WBC) Count 12.3 10x3/uL (4.8-10.8)
[2022-10-14 08:06] LABS: Anion Gap 8 mmol/L (10-20); BUN (Urea Nitrogen) 27 mg/dL (8.4-25.7); Calc. Creatinine Clearance 83 mL/min (70-130); Calcium 7.7 mg/dL (7.8-10.44); Carbon Dioxide 18 mmol/L (23-31); Chloride 112 mmol/L (98-107); Estimated GFR 88; Glucose 155 mg/dL (83-110); Potassium 3.4 mmol/L (3.5-5.1); Sodium 135 mmol/L (136-145)
[2022-10-14] MEDS: Dextrose 5 %-0.45 % NaCl 1,000 ML IV SCH (09:46)
[2022-10-14] MEDS: Dronedarone HCl 400 MG TAB PO SCH ×2 (09:47→16:40)
[2022-10-14] MEDS: Saccharomyces boulardii 250 MG CAP PO SCH (09:47)
[2022-10-14] MEDS: Ondansetron PF 4 MG/2 ML Vial IVP PRN (12:52)
[2022-10-14] MEDS: Lorazepam 0.5 MG TAB PO PRN ×2 (13:20→20:23)
[2022-10-14] MEDS: Multivitamins, Adult 10 ML, TRACE ELEMENT CONCENTRATE 1 ML in D15W-AA 5% with Lytes 2,0... IV SCH (14:01)
[2022-10-14] MEDS ORDERED: Digoxin 0.5 MG/2 ML AMP SLOW IVP SCH ×2 (14:15→18:30)
[2022-10-14 15:50] LABS: Troponin I Less than 0.010 ng/mL (< 0.028)
[2022-10-14] MEDS: Lactated Ringer's 1,000 ML IV SCH (17:12)
[2022-10-14] MEDS ORDERED: Furosemide 20 MG/2 ML VIAL SLOW IVP SCH (17:30)
[2022-10-14] MEDS ORDERED: Metoprolol Tartrate 25 MG TAB PO SCH (18:30)
[2022-10-14] MEDS: Albumin 25% 25 GM/100 ML BOT IVPB SCH (18:32)
[2022-10-14 20:00] LABS: Troponin I Less than 0.010 ng/mL (< 0.028)
[2022-10-14] MEDS: Acetaminophen 325 MG TAB PO PRN (20:23)
[2022-10-14] MEDS: Rosuvastatin 10 MG TAB PO SCH (20:23)
[2022-10-14] MEDS: Melatonin 3 MG TAB PO PRN (20:23)
[2022-10-15] MEDS: Albumin 25% 25 GM/100 ML BOT IVPB SCH ×3 (00:21→11:47)
[2022-10-15] MEDS: Ondansetron PF 4 MG/2 ML Vial IVP PRN ×2 (00:21→11:33)
[2022-10-15] MEDS: metroNIDAZOLE 500 MG in Premix Bag 1 BAG IVPB SCH ×3 (03:35→20:31)
[2022-10-15] MEDS: Vancomycin HCl 125 MG/5 ML (BATCHED) UDCUP PO SCH ×3 (03:36→15:12)
[2022-10-15] MEDS: Furosemide 20 MG/2 ML VIAL SLOW IVP SCH ×2 (05:52→15:35)
[2022-10-15] MEDS ORDERED: Metoprolol Tartrate 25 MG TAB PO SCH (09:00)
[2022-10-15] MEDS ORDERED: Iopamidol-370 76% 500 ML MDV (1 ML CHARGE) ONE (09:32)
[2022-10-15] MEDS: Metoprolol Tartrate 25 MG TAB PO SCH ×3 (11:20→21:35)
[2022-10-15] MEDS: Dronedarone HCl 400 MG TAB PO SCH (11:21)
[2022-10-15] MEDS: Saccharomyces boulardii 250 MG CAP PO SCH (11:21)
[2022-10-15] MEDS: Lactated Ringer's 1,000 ML IV SCH (11:44)
[2022-10-15] MEDS ORDERED: Amiodarone 150 MG in Dextrose 5% in Water 100 ML IVPB SCH (13:00)
[2022-10-15] MEDS: Amiodarone 450 MG in Dextrose 5% in Water 250 ML IVPB SCH ×2 (13:04→21:36)
[2022-10-15] MEDS: Lorazepam 0.5 MG TAB PO PRN ×2 (13:47→20:34)
[2022-10-15] MEDS: MULTIVITAMINS IV SCH (15:36)
[2022-10-15] MEDS: [UNRECOGNIZED DRUG - OTHER] IV SCH (15:36)
[2022-10-15] MEDS: TRACE ELEMENT IV SCH (15:36)
[2022-10-15] MEDS: FAT EMULSION IV SCH (15:36)
[2022-10-15] MEDS ORDERED: Digoxin 0.5 MG/2 ML AMP SLOW IVP SCH ×2 (17:15→20:00)
[2022-10-15] MEDS: Melatonin 3 MG TAB PO PRN (20:33)
[2022-10-15] MEDS: Rosuvastatin 10 MG TAB PO SCH (20:33)
[2022-10-16] MEDS ORDERED: Lactated Ringer's 500 ML IV SCH (01:00)
[2022-10-16] MEDS: metroNIDAZOLE 500 MG in Premix Bag 1 BAG IVPB SCH ×3 (04:55→20:22)
[2022-10-16] MEDS: Furosemide 20 MG/2 ML VIAL SLOW IVP SCH ×2 (04:57→14:12)
[2022-10-16] MEDS: Digoxin 0.5 MG/2 ML AMP SLOW IVP SCH (09:20)
[2022-10-16] MEDS: Amiodarone 450 MG in Dextrose 5% in Water 250 ML IVPB SCH ×2 (09:20→23:22)
[2022-10-16] MEDS: Metoprolol Tartrate 25 MG TAB PO SCH ×2 (09:21→20:18)
[2022-10-16] MEDS: Saccharomyces boulardii 250 MG CAP PO SCH (09:22)
[2022-10-16 10:43] LABS: #Eosinphils 0.1 thou/uL (0.0-0.7); #Monocytes 0.7 thou/uL (0.11-0.59); #Neutrophils 10.4 thou/uL (1.40-6.50); %Basophils 0.3 % (0.0-1.0); %Lymphocytes 8.1 % (21.0-51.0); %Monocytes 5.6 % (0.0-10.0); %Neutrophils 85.1 % (42.0-75.0); Hemoglobin 8.8 g/dL (14.0-18.0); Mean Corpuscular HGB CONC 32.3 g/dL (32.0-36.0); Mean Corpuscular Hemoglobin 26.2 pg (27.0-31.0); Mean Corpuscular Volume 81.3 fl (78.0-98.0); Mean Platelet Volume 9.2 fL (7.4-10.4); Platelet Count 172 10x3/uL (130-400); RBC Distribution Width 18.4 % (11.5-14.5); Red Blood Cell (RBC) Count 3.34 mill/uL (4.70-6.10); White Blood Cell (WBC) Count 12.3 10x3/uL (4.8-10.8)
[2022-10-16 10:59] LABS: ALT (SGPT) 10 U/L (8-55); AST (SGOT) 15 U/L (5-34); Alkaline Phosphatase 88 U/L (40-110); Anion Gap 12 mmol/L (10-20); BUN (Urea Nitrogen) 36 mg/dL (8.4-25.7); Bilirubin, Total 0.3 mg/dL (0.2-1.2); Calc. Creatinine Clearance 65 mL/min (70-130); Calcium 8.2 mg/dL (7.8-10.44); Carbon Dioxide 20 mmol/L (23-31); Chloride 110 mmol/L (98-107); Estimated GFR 75; Globulin 1.8 g/dL (2.4-3.5); Glucose 152 mg/dL (83-110); Potassium 3.7 mmol/L (3.5-5.1); Protein, Total 4.8 g/dL (5.8-8.1); Sodium 138 mmol/L (136-145)
[2022-10-16] MEDS: Multivitamins, Adult 10 ML, TRACE ELEMENT CONCENTRATE 1 ML in D15W-AA 5% with Lytes 2,0... IV SCH (14:11)
[2022-10-16] MEDS: Rosuvastatin 10 MG TAB PO SCH (20:18)
[2022-10-17] MEDS ORDERED: Morphine 2 MG/ML VIAL SLOW IVP SCH (01:45)
[2022-10-17 05:12] LABS: ALT (SGPT) 9 U/L (8-55); AST (SGOT) 18 U/L (5-34); Albumin 2.6 g/dL (3.4-4.8); Alkaline Phosphatase 84 U/L (40-110); Anion Gap 12 mmol/L (10-20); BUN (Urea Nitrogen) 39 mg/dL (8.4-25.7); Bilirubin, Total 0.4 mg/dL (0.2-1.2); Calc. Creatinine Clearance 79 mL/min (70-130); Calcium 7.8 mg/dL (7.8-10.44); Carbon Dioxide 18 mmol/L (23-31); Chloride 110 mmol/L (98-107); Estimated GFR 87; Globulin 1.8 g/dL (2.4-3.5); Glucose 158 mg/dL (83-110); Potassium 3.7 mmol/L (3.5-5.1); Protein, Total 4.4 g/dL (5.8-8.1); Sodium 136 mmol/L (136-145)
[2022-10-17 07:46] LABS: #Eosinphils 0.1 thou/uL (0.0-0.7); #Lymphocytes 1.2 thou/uL (1.20-3.40); #Monocytes 0.7 thou/uL (0.11-0.59); #Neutrophils 11.7 thou/uL (1.40-6.50); %Basophils 0.2 % (0.0-1.0); %Eosinophils 0.6 % (0.0-10.0); %Lymphocytes 8.7 % (21.0-51.0); %Monocytes 5.4 % (0.0-10.0); %Neutrophils 85.1 % (42.0-75.0); Mean Corpuscular HGB CONC 32.4 g/dL (32.0-36.0); Mean Corpuscular Hemoglobin 26.3 pg (27.0-31.0); Mean Corpuscular Volume 81.3 fl (78.0-98.0); Mean Platelet Volume 9.5 fL (7.4-10.4); Platelet Count 178 10x3/uL (130-400); RBC Distribution Width 18.5 % (11.5-14.5); Red Blood Cell (RBC) Count 3.41 mill/uL (4.70-6.10); White Blood Cell (WBC) Count 13.7 10x3/uL (4.8-10.8)
[2022-10-17] MEDS: metroNIDAZOLE 500 MG in Premix Bag 1 BAG IVPB SCH ×3 (08:34→21:42)
[2022-10-17] MEDS: Metoprolol Tartrate 25 MG TAB PO SCH ×2 (08:35→21:42)
[2022-10-17] MEDS: Saccharomyces boulardii 250 MG CAP PO SCH (08:35)
[2022-10-17] MEDS: Furosemide 20 MG/2 ML VIAL SLOW IVP SCH ×2 (08:50→13:43)
[2022-10-17] MEDS: Digoxin 0.5 MG/2 ML AMP SLOW IVP SCH (08:51)
[2022-10-17] MEDS: Amiodarone 450 MG in Dextrose 5% in Water 250 ML IVPB SCH (13:43)
[2022-10-17] MEDS: MULTIVITAMINS IV SCH (15:01)
[2022-10-17] MEDS: FAT EMULSION IV SCH (15:01)
[2022-10-17] MEDS: [UNRECOGNIZED DRUG - OTHER] IV SCH (15:01)
[2022-10-17] MEDS: TRACE ELEMENT IV SCH (15:01)
[2022-10-17] MEDS ORDERED: fentaNYL PF 100 MCG/2 ML SYRINGE ONE (15:26)
[2022-10-17] MEDS ORDERED: SUGAMMADEX SODIUM 200 MG/2 ML VIAL ONE (15:27)
[2022-10-17] MEDS ORDERED: Norepinephrine 4 MG/4 ML VIAL ONE (15:27)
[2022-10-17] MEDS ORDERED: Albumin 5% 500 ML ONE (15:27)
[2022-10-17] MEDS ORDERED: Lidocaine 1% PF 5 ML VIAL ONE (18:23)
[2022-10-17] MEDS ORDERED: Calcium Chloride 1 GM/10 ML Abboject SYRINGE ONE (18:23)
[2022-10-17] MEDS ORDERED: Succinylcholine Chloride 100 MG/5 ML SYRINGE FS ONE (18:23)
[2022-10-17] MEDS ORDERED: Rocuronium Bromide 10 MG/ML (10ML VIAL) ONE (18:23)
[2022-10-17] MEDS ORDERED: Meropenem 2 GM in Sodium Chloride 0.9% 100 ML IVPB SCH (19:00)
[2022-10-17] MEDS ORDERED: Digoxin 0.5 MG/2 ML AMP SLOW IVP SCH (21:00)
[2022-10-17] MEDS ORDERED: Ventilator Sedation Protocol 1 EACH FS SCH (21:00)
[2022-10-17 21:08] LABS: Actual Bicarbonate (HCO3a) 18.6 mEq/L (22-28); Base Excess (BEa) -7.7 mEq/L (-2.0 to +3.0); CO2 Tension 40.9 mmHg (35.0-45.0); Calcium, Ionized (arterial) 1.19 mmol/L (1.12-1.30); Carboxyhemoglobin (COHb) 0.9 gm% (0.0-3.0); Hemoglobin (Hb) 10.8 g/dL (14.0-18.0); O2 Tension (PaO2), arterial 142.5 mmHg (> 60.0); Potassium - ABG Lab 3.07 mmol/L (3.70-5.30); pH, Arterial 7.28 (7.35-7.45)
[2022-10-17 21:09] LABS: Puncture Site ALINE
[2022-10-17 21:10] LABS: ALV-art Gradient 234.175 mmHg (0-20)
[2022-10-17] MEDS ORDERED: Lorazepam 2 MG/ML VIAL SLOW IVP PRN (21:15)
[2022-10-17] MEDS ORDERED: Diltiazem HCl 125 MG, Admixture Fee 1 EACH in Sodium Chloride 0.9% 100 ML IVPB SCH (21:15)
[2022-10-17] MEDS ORDERED: Morphine 2 MG/ML VIAL SLOW IVP PRN (21:15)
[2022-10-17] MEDS ORDERED: Magnesium 2 GM/50 ML(in water) 2 GM in Premix Bag 1 BAG IVPB SCH (21:15)
[2022-10-17] MEDS ORDERED: Fentanyl CADD 100 ML IV SCH (21:15)
[2022-10-17] MEDS ORDERED: Propofol 1,000 MG/100 ML VIAL IV PRN (21:15)
[2022-10-17] MEDS ORDERED: Fentanyl BOLUS 250 ML IVPB PRN (21:15)
[2022-10-17] MEDS ORDERED: Propofol BOLUS 1,000 MG/100 ML VIAL IV PRN (21:15)
[2022-10-17] MEDS ORDERED: DISCONTINUE PREVIOUS NARCOTIC PAIN MEDICATIONS AND BENZODIAZEPINES FS SCH (21:15)
[2022-10-17] MEDS ORDERED: Piperacillin/Tazobactam 3.375 GM in Sodium Chloride 0.9% 100 ML IVPB SCH (21:30)
[2022-10-17] MEDS: Albumin 25% 25 GM/100 ML BOT IVPB SCH (21:41)
[2022-10-17] MEDS: Pantoprazole 40 MG VIAL IVP SCH (21:42)
[2022-10-17] MEDS: Rosuvastatin 10 MG TAB PO SCH (21:42)
[2022-10-17] MEDS ORDERED: Piperacillin/Tazobactam 4.5 GM in Sodium Chloride 0.9% 100 ML IVPB SCH (22:00)
[2022-10-17] MEDS ORDERED: Fentanyl CADD 100 ML ONE (22:34)
[2022-10-17] MEDS: Lactated Ringer's 1,000 ML IV SCH (22:44)
[2022-10-17] MEDS ORDERED: Electrolyte Replacement Protocol 1 EACH FS SCH (23:00)
[2022-10-18] MEDS: Piperacillin/Tazobactam 3.375 GM in Sodium Chloride 0.9% 100 ML IVPB SCH ×3 (02:37→17:12)
[2022-10-18 04:35] LABS: Hemoglobin 9.7 g/dL (14.0-18.0); Mean Corpuscular HGB CONC 32.4 g/dL (32.0-36.0); Mean Corpuscular Hemoglobin 26.8 pg (27.0-31.0); Mean Corpuscular Volume 82.8 fl (78.0-98.0); Mean Platelet Volume 9.4 fL (7.4-10.4); Platelet Count 157 10x3/uL (130-400); RBC Distribution Width 17.8 % (11.5-14.5); Red Blood Cell (RBC) Count 3.61 mill/uL (4.70-6.10)
[2022-10-18] MEDS: Albumin 25% 25 GM/100 ML BOT IVPB SCH ×3 (04:44→16:18)
[2022-10-18] MEDS: metroNIDAZOLE 500 MG in Premix Bag 1 BAG IVPB SCH ×3 (04:44→20:55)
[2022-10-18] MEDS: Amiodarone 450 MG in Dextrose 5% in Water 250 ML IVPB SCH ×2 (04:57→21:11)
[2022-10-18 04:59] LABS: ALT (SGPT) 7 U/L (8-55); AST (SGOT) 12 U/L (5-34); Albumin 2.5 g/dL (3.4-4.8); Alkaline Phosphatase 61 U/L (40-110); Anion Gap 10 mmol/L (10-20); BUN (Urea Nitrogen) 40 mg/dL (8.4-25.7); Bilirubin, Total 0.8 mg/dL (0.2-1.2); Calc. Creatinine Clearance 78 mL/min (70-130); Calcium 7.2 mg/dL (7.8-10.44); Carbon Dioxide 16 mmol/L (23-31); Chloride 114 mmol/L (98-107); Estimated GFR 87; Globulin 1.3 g/dL (2.4-3.5); Glucose 184 mg/dL (83-110); Magnesium 1.8 mg/dL (1.6-2.6); Potassium 2.9 mmol/L (3.5-5.1); Protein, Total 3.8 g/dL (5.8-8.1); Sodium 137 mmol/L (136-145)
[2022-10-18 05:14] LABS: Band 29 % (5-11); Eosinophils 1 % (0-10); Lymphocytes 8 % (21-51); MDiff Complete? YES; Monocytes 2 % (0-10); Neutrophil 58 % (42-75); Reactive Lymphocytes 2 % (0-10)
[2022-10-18 07:11] LABS: Actual Bicarbonate (HCO3a) 18.2 mEq/L (22-28); Base Excess (BEa) -5.3 mEq/L (-2.0 to +3.0); CO2 Tension 28.7 mmHg (35.0-45.0); Calcium, Ionized (arterial) 1.15 mmol/L (1.12-1.30); Carboxyhemoglobin (COHb) 0.1 gm% (0.0-3.0); Hemoglobin (Hb) 10.2 g/dL (14.0-18.0); O2 Tension (PaO2), arterial 153.3 mmHg (> 60.0); Potassium - ABG Lab 2.91 mmol/L (3.70-5.30); pH, Arterial 7.42 (7.35-7.45)
[2022-10-18] MEDS: Potassium Chloride 20 MEQ in Premix Bag 1 BAG IVPB SCH ×4 (07:12→12:26)
[2022-10-18 07:53] LABS: ALV-art Gradient 96.025 mmHg (0-20); Puncture Site Arterial Line
[2022-10-18] MEDS: Pantoprazole 40 MG VIAL IVP SCH ×2 (08:51→23:17)
[2022-10-18] MEDS: Metoprolol Tartrate 25 MG TAB PO SCH ×2 (08:55→23:26)
[2022-10-18] MEDS: Digoxin 0.5 MG/2 ML AMP SLOW IVP SCH (08:57)
[2022-10-18] MEDS: Saccharomyces boulardii 250 MG CAP PO SCH (08:57)
[2022-10-18] MEDS ORDERED: Magnesium 2 GM/50 ML(in water) 2 GM in Premix Bag 1 BAG IVPB SCH (09:00)
[2022-10-18] MEDS: Lactated Ringer's 1,000 ML IV SCH (11:57)
[2022-10-18] MEDS: Multivitamins, Adult 10 ML, TRACE ELEMENT CONCENTRATE 1 ML in D15W-AA 5% with Lytes 2,0... IV SCH (14:04)
[2022-10-18 21:10] LABS: Potassium 3.6 mmol/L (3.5-5.1)
[2022-10-18] MEDS: Rosuvastatin 10 MG TAB PO SCH (23:17)
[2022-10-19] MEDS: Albumin 25% 25 GM/100 ML BOT IVPB SCH ×4 (01:58→20:17)
[2022-10-19] MEDS: Piperacillin/Tazobactam 3.375 GM in Sodium Chloride 0.9% 100 ML IVPB SCH ×3 (03:52→17:49)
[2022-10-19 04:36] LABS: ALT (SGPT) Less than 7 U/L (8-55); AST (SGOT) 11 U/L (5-34); Alkaline Phosphatase 45 U/L (40-110); Anion Gap 9 mmol/L (10-20); BUN (Urea Nitrogen) 48 mg/dL (8.4-25.7); Bilirubin, Total 0.8 mg/dL (0.2-1.2); Calc. Creatinine Clearance 70 mL/min (70-130); Calcium 8.2 mg/dL (7.8-10.44); Carbon Dioxide 20 mmol/L (23-31); Chloride 113 mmol/L (98-107); Estimated GFR 81; Globulin 1.2 g/dL (2.4-3.5); Glucose 145 mg/dL (83-110); Magnesium 2.2 mg/dL (1.6-2.6); Potassium 3.7 mmol/L (3.5-5.1); Protein, Total 4.2 g/dL (5.8-8.1); Sodium 138 mmol/L (136-145)
[2022-10-19 04:37] LABS: #Eosinphils 0.1 thou/uL (0.0-0.7); #Lymphocytes 1.1 thou/uL (1.20-3.40); #Monocytes 0.5 thou/uL (0.11-0.59); #Neutrophils 7.9 thou/uL (1.40-6.50); %Basophils 0.3 % (0.0-1.0); %Eosinophils 0.7 % (0.0-10.0); %Lymphocytes 11.3 % (21.0-51.0); %Monocytes 5.4 % (0.0-10.0); %Neutrophils 82.3 % (42.0-75.0); Hemoglobin 6.9 g/dL (14.0-18.0); Mean Corpuscular HGB CONC 33.3 g/dL (32.0-36.0); Mean Corpuscular Hemoglobin 27.7 pg (27.0-31.0); Mean Corpuscular Volume 82.9 fl (78.0-98.0); Mean Platelet Volume 9.6 fL (7.4-10.4); Platelet Count 117 10x3/uL (130-400); RBC Distribution Width 17.4 % (11.5-14.5); White Blood Cell (WBC) Count 9.6 10x3/uL (4.8-10.8)
[2022-10-19] MEDS: metroNIDAZOLE 500 MG in Premix Bag 1 BAG IVPB SCH ×3 (05:35→20:17)
[2022-10-19] MEDS: Lactated Ringer's 1,000 ML IV SCH ×2 (08:51→12:28)
[2022-10-19] MEDS: Digoxin 0.5 MG/2 ML AMP SLOW IVP SCH (08:52)
[2022-10-19] MEDS: Metoprolol Tartrate 25 MG TAB PO SCH ×2 (08:52→20:25)
[2022-10-19] MEDS: Pantoprazole 40 MG VIAL IVP SCH ×2 (08:52→20:25)
[2022-10-19] MEDS: Saccharomyces boulardii 250 MG CAP PO SCH (08:53)
[2022-10-19] MEDS ORDERED: Scopolamine 1.5 mg/72 hour Patch TD SCH (10:45)
[2022-10-19] MEDS: Amiodarone 450 MG in Dextrose 5% in Water 250 ML IVPB SCH (12:27)
[2022-10-19] MEDS ORDERED: Naloxone HCl 0.4 mg/ml Vial IV PRN (13:45)
[2022-10-19] MEDS ORDERED: Morphine Sulfate 100 MG in Dextrose 5% in Water 98 ML IV SCH (13:45)
[2022-10-19] MEDS ORDERED: Ondansetron PF 4 MG/2 ML Vial IVP PRN (13:45)
[2022-10-19] MEDS: Multivitamins, Adult 10 ML, TRACE ELEMENT CONCENTRATE 1 ML in D15W-AA 5% with Lytes 2,0... IV SCH (15:15)
[2022-10-19] MEDS: Rosuvastatin 10 MG TAB PO SCH (20:25)
[2022-10-20] MEDS: metroNIDAZOLE 500 MG in Premix Bag 1 BAG IVPB SCH ×3 (04:11→20:49)
[2022-10-20 04:46] LABS: #Eosinphils 0.1 thou/uL (0.0-0.7); #Lymphocytes 0.9 thou/uL (1.20-3.40); #Monocytes 0.6 thou/uL (0.11-0.59); #Neutrophils 9.7 thou/uL (1.40-6.50); %Basophils 0.2 % (0.0-1.0); %Eosinophils 0.9 % (0.0-10.0); %Lymphocytes 8.3 % (21.0-51.0); %Neutrophils 85.5 % (42.0-75.0); Hemoglobin 7.9 g/dL (14.0-18.0); Mean Corpuscular HGB CONC 33.5 g/dL (32.0-36.0); Mean Corpuscular Hemoglobin 27.9 pg (27.0-31.0); Mean Corpuscular Volume 83.3 fl (78.0-98.0); Platelet Count 136 10x3/uL (130-400); RBC Distribution Width 16.8 % (11.5-14.5); Red Blood Cell (RBC) Count 2.83 mill/uL (4.70-6.10); White Blood Cell (WBC) Count 11.3 10x3/uL (4.8-10.8)
[2022-10-20] MEDS: Amiodarone 450 MG in Dextrose 5% in Water 250 ML IVPB SCH ×2 (04:47→18:25)
[2022-10-20 04:54] LABS: ALT (SGPT) 7 U/L (8-55); AST (SGOT) 12 U/L (5-34); Alkaline Phosphatase 67 U/L (40-110); Anion Gap 8 mmol/L (10-20); BUN (Urea Nitrogen) 42 mg/dL (8.4-25.7); Bilirubin, Total 1.1 mg/dL (0.2-1.2); Calc. Creatinine Clearance 96 mL/min (70-130); Calcium 8.5 mg/dL (7.8-10.44); Carbon Dioxide 20 mmol/L (23-31); Chloride 116 mmol/L (98-107); Estimated GFR 88; Globulin 1.4 g/dL (2.4-3.5); Glucose 144 mg/dL (83-110); Potassium 3.3 mmol/L (3.5-5.1); Protein, Total 4.4 g/dL (5.8-8.1); Sodium 141 mmol/L (136-145)
[2022-10-20] MEDS: Lactated Ringer's 1,000 ML IV SCH (06:33)
[2022-10-20] MEDS ORDERED: 1/2 NS w/KCL 20 mEq 1,000 ML IV SCH (08:45)
[2022-10-20] MEDS: Metoprolol Tartrate 25 MG TAB PO SCH ×2 (08:51→20:49)
[2022-10-20] MEDS: Saccharomyces boulardii 250 MG CAP PO SCH (08:51)
[2022-10-20] MEDS: Pantoprazole 40 MG VIAL IVP SCH ×2 (08:52→20:49)
[2022-10-20] MEDS: Potassium Chloride 20 MEQ in Premix Bag 1 BAG IVPB SCH ×2 (08:52→10:19)
[2022-10-20] MEDS ORDERED: Morphine 2 MG/ML VIAL SLOW IVP PRN (10:41)
[2022-10-20] MEDS: MULTIVITAMINS IV SCH (13:54)
[2022-10-20] MEDS: FAT EMULSION IV SCH (13:54)
[2022-10-20] MEDS: [UNRECOGNIZED DRUG - OTHER] IV SCH (13:54)
[2022-10-20] MEDS: TRACE ELEMENT IV SCH (13:54)
[2022-10-20 14:56] LABS: Actual Bicarbonate (HCO3a) 18.6 mEq/L (22-28); Analyzer IN Cardio OR; Base Excess (BEa) -5.9 mEq/L (-2.0 to +3.0); CO2 Tension 32.6 mmHg (35.0-45.0); Calcium, Ionized (arterial) 1.17 mmol/L (1.12-1.30); Carboxyhemoglobin (COHb) 0.7 gm% (0.0-3.0); O2 Tension (PaO2), arterial 357.9 mmHg (> 60.0); Potassium - ABG Lab 2.81 mmol/L (3.70-5.30); pH, Arterial 7.37 (7.35-7.45)
[2022-10-20 14:56] LABS: Actual Bicarbonate (HCO3a) 15.5 mEq/L (22-28); Analyzer IN Cardio OR; Base Excess (BEa) -6.8 mEq/L (-2.0 to +3.0); Calcium, Ionized (arterial) 1.04 mmol/L (1.12-1.30); Carboxyhemoglobin (COHb) 0.9 gm% (0.0-3.0); Hemoglobin (Hb) 7.8 g/dL (14.0-18.0); O2 Tension (PaO2), arterial 217.8 mmHg (> 60.0); pH, Arterial 7.49 (7.35-7.45)
[2022-10-20 15:00] LABS: CO2 Tension 21.1 mmHg (35.0-45.0); Potassium - ABG Lab 2.41 mmol/L (3.70-5.30); Puncture Site Arterial Line
[2022-10-20 15:01] LABS: Puncture Site Arterial Line
[2022-10-20 16:26] LABS: Anion Gap 10 mmol/L (10-20); BUN (Urea Nitrogen) 40 mg/dL (8.4-25.7); Calc. Creatinine Clearance 107 mL/min (70-130); Calcium 8.5 mg/dL (7.8-10.44); Carbon Dioxide 20 mmol/L (23-31); Chloride 116 mmol/L (98-107); Estimated GFR 91; Glucose 121 mg/dL (83-110); Potassium 3.8 mmol/L (3.5-5.1); Sodium 142 mmol/L (136-145)
[2022-10-20] MEDS ORDERED: ALPRAZolam 0.25 MG TAB PER TUBE PRN (17:09)
[2022-10-20] MEDS: Melatonin 3 MG TAB PO PRN (20:49)
[2022-10-21 04:10] LABS: #Eosinphils 0.1 thou/uL (0.0-0.7); #Lymphocytes 1.2 thou/uL (1.20-3.40); #Monocytes 0.5 thou/uL (0.11-0.59); #Neutrophils 10.7 thou/uL (1.40-6.50); %Basophils 0.2 % (0.0-1.0); %Eosinophils 0.7 % (0.0-10.0); %Lymphocytes 9.7 % (21.0-51.0); %Monocytes 4.1 % (0.0-10.0); %Neutrophils 85.3 % (42.0-75.0); Hemoglobin 8.7 g/dL (14.0-18.0); Mean Corpuscular HGB CONC 32.9 g/dL (32.0-36.0); Mean Corpuscular Hemoglobin 27.7 pg (27.0-31.0); Mean Corpuscular Volume 84.1 fl (78.0-98.0); Mean Platelet Volume 9.3 fL (7.4-10.4); Platelet Count 170 10x3/uL (130-400); RBC Distribution Width 17.1 % (11.5-14.5); Red Blood Cell (RBC) Count 3.14 mill/uL (4.70-6.10); White Blood Cell (WBC) Count 12.5 10x3/uL (4.8-10.8)
[2022-10-21 04:38] LABS: ALT (SGPT) 10 U/L (8-55); AST (SGOT) 20 U/L (5-34); Alkaline Phosphatase 142 U/L (40-110); Anion Gap 11 mmol/L (10-20); BUN (Urea Nitrogen) 40 mg/dL (8.4-25.7); Bilirubin, Total 0.7 mg/dL (0.2-1.2); Calc. Creatinine Clearance 105 mL/min (70-130); Calcium 8.4 mg/dL (7.8-10.44); Carbon Dioxide 18 mmol/L (23-31); Chloride 115 mmol/L (98-107); Estimated GFR 91; Globulin 1.7 g/dL (2.4-3.5); Glucose 169 mg/dL (83-110); Potassium 3.5 mmol/L (3.5-5.1); Protein, Total 4.7 g/dL (5.8-8.1); Sodium 140 mmol/L (136-145)
[2022-10-21] MEDS: metroNIDAZOLE 500 MG in Premix Bag 1 BAG IVPB SCH ×3 (04:59→20:23)
[2022-10-21] MEDS ORDERED: Potassium Chloride 20 MEQ TAB PO SCH (08:00)
[2022-10-21] MEDS ORDERED: Magnesium 2 GM/50 ML(in water) 2 GM in Premix Bag 1 BAG IVPB SCH (08:00)
[2022-10-21] MEDS: Pantoprazole 40 MG VIAL IVP SCH ×2 (08:59→20:23)
[2022-10-21] MEDS: Saccharomyces boulardii 250 MG CAP PO SCH (08:59)
[2022-10-21] MEDS: Amiodarone 450 MG in Dextrose 5% in Water 250 ML IVPB SCH (10:50)
[2022-10-21] MEDS: Vancomycin HCl 125 MG/5 ML (BATCHED) UDCUP PO SCH ×2 (14:06→16:58)
[2022-10-21] MEDS: Multivitamins, Adult 10 ML, TRACE ELEMENT CONCENTRATE 1 ML in D15W-AA 5% with Lytes 2,0... IV SCH (16:58)
[2022-10-21] MEDS: Scopolamine 1.5 mg/72 hour Patch TOP SCH (16:59)
[2022-10-22] MEDS: Vancomycin HCl 125 MG/5 ML (BATCHED) UDCUP PO SCH ×4 (00:13→17:53)
[2022-10-22] MEDS: Amiodarone 450 MG in Dextrose 5% in Water 250 ML IVPB SCH ×2 (02:34→18:00)
[2022-10-22] MEDS: metroNIDAZOLE 500 MG in Premix Bag 1 BAG IVPB SCH ×3 (04:50→20:16)
[2022-10-22] MEDS: Saccharomyces boulardii 250 MG CAP PO SCH ×2 (09:19→09:50)
[2022-10-22] MEDS: Pantoprazole 40 MG VIAL IVP SCH ×2 (09:19→20:16)
[2022-10-22] MEDS: FAT EMULSION IV SCH (14:10)
[2022-10-22] MEDS: TRACE ELEMENT IV SCH (14:10)
[2022-10-22] MEDS: MULTIVITAMINS IV SCH (14:10)
[2022-10-22] MEDS: [UNRECOGNIZED DRUG - OTHER] IV SCH (14:10)
[2022-10-22] MEDS ORDERED: Nystatin Powder 15 GM BOT TOP PRN (18:02)
[2022-10-23] MEDS: Vancomycin HCl 125 MG/5 ML (BATCHED) UDCUP PO SCH ×5 (00:50→23:48)
[2022-10-23] MEDS: Albumin 25% 25 GM/100 ML BOT IVPB SCH ×4 (00:50→18:44)
[2022-10-23] MEDS: metroNIDAZOLE 500 MG in Premix Bag 1 BAG IVPB SCH ×3 (05:01→18:44)
[2022-10-23] MEDS: Senokot S 8.6-50 MG TAB PO SCH ×2 (09:30→20:46)
[2022-10-23] MEDS: Saccharomyces boulardii 250 MG CAP PO SCH (09:31)
[2022-10-23] MEDS: Pantoprazole 40 MG VIAL IVP SCH ×2 (09:31→20:46)
[2022-10-23] MEDS ORDERED: Furosemide 40 MG/4 ML VIAL SLOW IVP SCH (11:00)
[2022-10-23] MEDS: Multivitamins, Adult 10 ML, TRACE ELEMENT CONCENTRATE 1 ML in D15W-AA 5% with Lytes 2,0... IV SCH (15:26)
[2022-10-23] MEDS: Melatonin 3 MG TAB PO PRN (21:06)
[2022-10-23] MEDS: Acetaminophen 325 MG TAB PO PRN (21:06)
[2022-10-23] MEDS: Amiodarone 450 MG in Dextrose 5% in Water 250 ML IVPB SCH (23:56)
[2022-10-24] MEDS: metroNIDAZOLE 500 MG in Premix Bag 1 BAG IVPB SCH ×3 (03:30→20:20)
[2022-10-24] MEDS: Vancomycin HCl 125 MG/5 ML (BATCHED) UDCUP PO SCH ×3 (06:38→17:38)
[2022-10-24] MEDS ORDERED: Potassium Chloride 20 MEQ TAB PO SCH (07:00)
[2022-10-24 07:08] LABS: Phosphorus 2.7 mg/dL (2.3-4.7)
[2022-10-24 07:09] LABS: Anion Gap 7 mmol/L (10-20); BUN (Urea Nitrogen) 33 mg/dL (8.4-25.7); Calc. Creatinine Clearance 124 mL/min (70-130); Calcium 8.5 mg/dL (7.8-10.44); Carbon Dioxide 23 mmol/L (23-31); Chloride 114 mmol/L (98-107); Estimated GFR 95; Glucose 145 mg/dL (83-110); Magnesium 1.9 mg/dL (1.6-2.6); Potassium 3.3 mmol/L (3.5-5.1); Sodium 141 mmol/L (136-145)
[2022-10-24] MEDS ORDERED: Magnesium 2 GM/50 ML(in water) 2 GM in Premix Bag 1 BAG IVPB SCH (08:00)
[2022-10-24] MEDS: Senokot S 8.6-50 MG TAB PO SCH ×2 (08:03→20:22)
[2022-10-24] MEDS: Polyethylene Glycol 3350 17 GM Packet PO SCH (08:03)
[2022-10-24] MEDS: Saccharomyces boulardii 250 MG CAP PO SCH (10:35)
[2022-10-24] MEDS: Pantoprazole 40 MG VIAL IVP SCH ×2 (10:35→20:19)
[2022-10-24] MEDS ORDERED: Dronedarone HCl 400 MG TAB PO SCH ×2 (11:20→12:15)
[2022-10-24] MEDS ORDERED: Nystatin Cream 15 GM TUBE TOP PRN (12:24)
[2022-10-24] MEDS ORDERED: Hydrocortisone 1% Cream 30 GM TUBE TOP PRN (12:24)
[2022-10-24] MEDS ORDERED: Furosemide 40 MG/4 ML VIAL SLOW IVP SCH (16:15)
[2022-10-24] MEDS: Scopolamine 1.5 mg/72 hour Patch TOP SCH (17:37)
[2022-10-24] MEDS: Dronedarone HCl 400 MG TAB PO SCH (17:38)
[2022-10-24] MEDS: Folic Acid/Vit B Comp W-C PO SCH (20:19)
[2022-10-24] MEDS: Acetaminophen 325 MG TAB PO PRN (20:19)
[2022-10-24] MEDS: Melatonin 3 MG TAB PO PRN (20:19)
[2022-10-24] MEDS: Hydrocortisone 1% Cream 30 GM TUBE TOP SCH (20:20)
[2022-10-24] MEDS: Nystatin Cream 15 GM TUBE TOP SCH (20:21)
[2022-10-25] MEDS: Vancomycin HCl 125 MG/5 ML (BATCHED) UDCUP PO SCH ×5 (01:02→22:43)
[2022-10-25] MEDS: metroNIDAZOLE 500 MG in Premix Bag 1 BAG IVPB SCH (05:22)
[2022-10-25] MEDS ORDERED: Cholecalciferol (Vitamin D3) 400 UNITS TAB PO SCH (09:00)
[2022-10-25 09:55] LABS: #Eosinphils 0.1 thou/uL (0.0-0.7); #Lymphocytes 1.3 thou/uL (1.20-3.40); #Monocytes 0.6 thou/uL (0.11-0.59); #Neutrophils 10.6 thou/uL (1.40-6.50); %Basophils 0.3 % (0.0-1.0); %Eosinophils 0.8 % (0.0-10.0); %Lymphocytes 10.5 % (21.0-51.0); %Monocytes 4.7 % (0.0-10.0); %Neutrophils 83.8 % (42.0-75.0); Hemoglobin 8.5 g/dL (14.0-18.0); Mean Corpuscular HGB CONC 31.9 g/dL (32.0-36.0); Mean Corpuscular Hemoglobin 27.6 pg (27.0-31.0); Mean Corpuscular Volume 86.5 fl (78.0-98.0); Mean Platelet Volume 8.7 fL (7.4-10.4); Platelet Count 247 10x3/uL (130-400); RBC Distribution Width 16.6 % (11.5-14.5); White Blood Cell (WBC) Count 12.6 10x3/uL (4.8-10.8)
[2022-10-25] MEDS: Folic Acid/Vit B Comp W-C PO SCH ×2 (09:58→21:59)
[2022-10-25] MEDS: Senokot S 8.6-50 MG TAB PO SCH ×2 (09:58→21:49)
[2022-10-25] MEDS: Cholecalciferol 1,000 UNITS (25 MCG) TAB PO SCH (09:58)
[2022-10-25] MEDS: Saccharomyces boulardii 250 MG CAP PO SCH (09:59)
[2022-10-25] MEDS: Zinc Sulfate 220 MG CAP PO SCH (09:59)
[2022-10-25] MEDS: Dronedarone HCl 400 MG TAB PO SCH ×2 (09:59→17:22)
[2022-10-25] MEDS: Nystatin Cream 15 GM TUBE TOP SCH ×2 (10:00→21:59)
[2022-10-25] MEDS: Hydrocortisone 1% Cream 30 GM TUBE TOP SCH ×2 (10:00→21:59)
[2022-10-25] MEDS: Polyethylene Glycol 3350 17 GM Packet PO SCH (10:01)
[2022-10-25 10:14] LABS: Anion Gap 12 mmol/L (10-20); BUN (Urea Nitrogen) 36 mg/dL (8.4-25.7); Calc. Creatinine Clearance 105 mL/min (70-130); Calcium 8.2 mg/dL (7.8-10.44); Carbon Dioxide 18 mmol/L (23-31); Chloride 112 mmol/L (98-107); Estimated GFR 91; Glucose 105 mg/dL (83-110); Potassium 3.7 mmol/L (3.5-5.1); Sodium 138 mmol/L (136-145)
[2022-10-25] MEDS ORDERED: Furosemide 40 MG TAB PO SCH (10:30)
[2022-10-26] MEDS: Vancomycin HCl 125 MG/5 ML (BATCHED) UDCUP PO SCH ×3 (05:15→18:09)
[2022-10-26] MEDS ORDERED: Furosemide 40 MG TAB PO SCH (08:30)
[2022-10-26] MEDS: Saccharomyces boulardii 250 MG CAP PO SCH (08:47)
[2022-10-26] MEDS: Zinc Sulfate 220 MG CAP PO SCH (08:47)
[2022-10-26] MEDS: Cholecalciferol 1,000 UNITS (25 MCG) TAB PO SCH (08:47)
[2022-10-26] MEDS: Dronedarone HCl 400 MG TAB PO SCH ×2 (08:47→18:10)
[2022-10-26] MEDS: Folic Acid/Vit B Comp W-C PO SCH ×2 (08:48→21:53)
[2022-10-26] MEDS: Apixaban 5 MG TAB PO SCH ×2 (08:48→21:53)
[2022-10-26] MEDS: Polyethylene Glycol 3350 17 GM Packet PO SCH (08:53)
[2022-10-26] MEDS: Senokot S 8.6-50 MG TAB PO SCH ×2 (08:53→22:01)
[2022-10-26] MEDS: Nystatin Cream 15 GM TUBE TOP SCH ×2 (09:15→22:01)
[2022-10-26] MEDS: Hydrocortisone 1% Cream 30 GM TUBE TOP SCH ×2 (09:16→22:00)
[2022-10-26] MEDS: Acetaminophen 325 MG TAB PO PRN ×2 (12:39→21:53)
[2022-10-26] MEDS: ALPRAZolam 0.25 MG TAB PO PRN (21:55)
[2022-10-27] MEDS: Vancomycin HCl 125 MG/5 ML (BATCHED) UDCUP PO SCH ×4 (00:33→18:28)
[2022-10-27 04:19] LABS: #Lymphocytes 0.9 thou/uL (1.20-3.40); #Monocytes 0.6 thou/uL (0.11-0.59); %Basophils 0.2 % (0.0-1.0); %Eosinophils 0.4 % (0.0-10.0); %Lymphocytes 7.5 % (21.0-51.0); %Monocytes 4.4 % (0.0-10.0); %Neutrophils 87.5 % (42.0-75.0); Hemoglobin 7.7 g/dL (14.0-18.0); Mean Corpuscular HGB CONC 31.9 g/dL (32.0-36.0); Mean Corpuscular Hemoglobin 27.2 pg (27.0-31.0); Mean Corpuscular Volume 85.2 fl (78.0-98.0); Mean Platelet Volume 8.4 fL (7.4-10.4); Platelet Count 242 10x3/uL (130-400); RBC Distribution Width 16.1 % (11.5-14.5); Red Blood Cell (RBC) Count 2.84 mill/uL (4.70-6.10); White Blood Cell (WBC) Count 12.5 10x3/uL (4.8-10.8)
[2022-10-27 04:55] LABS: Anion Gap 12 mmol/L (10-20); BUN (Urea Nitrogen) 43 mg/dL (8.4-25.7); Calc. Creatinine Clearance 103 mL/min (70-130); Calcium 8.2 mg/dL (7.8-10.44); Carbon Dioxide 20 mmol/L (23-31); Chloride 109 mmol/L (98-107); Estimated GFR 90; Glucose 89 mg/dL (83-110); Potassium 2.9 mmol/L (3.5-5.1); Sodium 138 mmol/L (136-145)
[2022-10-27] MEDS: Folic Acid/Vit B Comp W-C PO SCH ×2 (09:48→20:52)
[2022-10-27] MEDS: Saccharomyces boulardii 250 MG CAP PO SCH (09:48)
[2022-10-27] MEDS: Apixaban 5 MG TAB PO SCH ×2 (09:48→20:52)
[2022-10-27] MEDS: Dronedarone HCl 400 MG TAB PO SCH ×2 (09:48→18:27)
[2022-10-27] MEDS: Nystatin Cream 15 GM TUBE TOP SCH ×2 (09:49→20:53)
[2022-10-27] MEDS: Cholecalciferol 1,000 UNITS (25 MCG) TAB PO SCH (09:49)
[2022-10-27] MEDS: Hydrocortisone 1% Cream 30 GM TUBE TOP SCH ×2 (09:49→20:52)
[2022-10-27] MEDS: Potassium Chloride 20 MEQ TAB PO SCH ×2 (10:09→13:52)
[2022-10-27] MEDS: Zinc Sulfate 220 MG CAP PO SCH (10:10)
[2022-10-27] MEDS: Polyethylene Glycol 3350 17 GM Packet PO SCH (10:10)
[2022-10-27] MEDS: Acetaminophen 325 MG TAB PO PRN (21:45)
[2022-10-27] MEDS: ALPRAZolam 0.25 MG TAB PO PRN (21:45)
[2022-10-28] MEDS: Vancomycin HCl 125 MG/5 ML (BATCHED) UDCUP PO SCH ×3 (00:23→11:32)
[2022-10-28] MEDS: Dronedarone HCl 400 MG TAB PO SCH ×2 (09:00→17:53)
[2022-10-28] MEDS: Folic Acid/Vit B Comp W-C PO SCH ×2 (09:00→21:58)
[2022-10-28] MEDS: Cholecalciferol 1,000 UNITS (25 MCG) TAB PO SCH (09:00)
[2022-10-28] MEDS: Zinc Sulfate 220 MG CAP PO SCH (09:00)
[2022-10-28] MEDS: Apixaban 5 MG TAB PO SCH ×2 (09:01→21:58)
[2022-10-28] MEDS: Polyethylene Glycol 3350 17 GM Packet PO SCH (09:01)
[2022-10-28] MEDS: Hydrocortisone 1% Cream 30 GM TUBE TOP SCH ×2 (09:01→21:58)
[2022-10-28] MEDS: Saccharomyces boulardii 250 MG CAP PO SCH (09:01)
[2022-10-28] MEDS: Nystatin Cream 15 GM TUBE TOP SCH ×2 (09:01→21:58)
[2022-10-28] MEDS: Albumin 25% 25 GM/100 ML BOT IVPB SCH ×2 (12:40→17:53)
[2022-10-28] MEDS: ALPRAZolam 0.25 MG TAB PO PRN (22:05)
[2022-10-29] MEDS: Apixaban 5 MG TAB PO SCH ×2 (09:16→20:42)
[2022-10-29] MEDS: Cholecalciferol 1,000 UNITS (25 MCG) TAB PO SCH (09:17)
[2022-10-29] MEDS: Folic Acid/Vit B Comp W-C PO SCH ×2 (09:17→20:42)
[2022-10-29] MEDS: Saccharomyces boulardii 250 MG CAP PO SCH (09:17)
[2022-10-29] MEDS: Dronedarone HCl 400 MG TAB PO SCH ×2 (09:17→16:32)
[2022-10-29] MEDS: Zinc Sulfate 220 MG CAP PO SCH (09:17)
[2022-10-29] MEDS: Hydrocortisone 1% Cream 30 GM TUBE TOP SCH ×2 (09:18→20:43)
[2022-10-29] MEDS: Nystatin Cream 15 GM TUBE TOP SCH ×2 (09:18→20:44)
[2022-10-29] MEDS: Polyethylene Glycol 3350 17 GM Packet PO SCH (09:18)
[2022-10-29 11:34] VITALS: BMI 27.6
[2022-10-29] MEDS: Melatonin 3 MG TAB PO PRN (20:42)
[2022-10-29] MEDS: ALPRAZolam 0.25 MG TAB PO PRN (20:43)
[2022-10-30] MEDS ORDERED: Morphine 2 MG/ML VIAL SLOW IVP SCH (04:45)
[2022-10-30 08:30] LABS: Anion Gap 11 mmol/L (10-20); BUN (Urea Nitrogen) 26 mg/dL (8.4-25.7); Calc. Creatinine Clearance 100 mL/min (70-130); Calcium 8.5 mg/dL (7.8-10.44); Carbon Dioxide 20 mmol/L (23-31); Chloride 111 mmol/L (98-107); Estimated GFR 90; Glucose 108 mg/dL (83-110); Sodium 138 mmol/L (136-145)
[2022-10-30 08:57] LABS: #Eosinphils 0.1 thou/uL (0.0-0.7); #Lymphocytes 1.1 thou/uL (1.20-3.40); #Monocytes 0.7 thou/uL (0.11-0.59); #Neutrophils 11.9 thou/uL (1.40-6.50); %Basophils 0.2 % (0.0-1.0); %Eosinophils 0.7 % (0.0-10.0); %Monocytes 5.2 % (0.0-10.0); %Neutrophils 85.9 % (42.0-75.0); Hemoglobin 8.3 g/dL (14.0-18.0); Mean Corpuscular HGB CONC 31.5 g/dL (32.0-36.0); Mean Corpuscular Hemoglobin 27.1 pg (27.0-31.0); Mean Platelet Volume 8.1 fL (7.4-10.4); Platelet Count 329 10x3/uL (130-400); Red Blood Cell (RBC) Count 3.05 mill/uL (4.70-6.10); White Blood Cell (WBC) Count 13.8 10x3/uL (4.8-10.8)
[2022-10-30] MEDS: Dronedarone HCl 400 MG TAB PO SCH ×2 (09:58→16:51)
[2022-10-30] MEDS: Folic Acid/Vit B Comp W-C PO SCH ×2 (09:59→21:03)
[2022-10-30] MEDS: Saccharomyces boulardii 250 MG CAP PO SCH (09:59)
[2022-10-30] MEDS: Zinc Sulfate 220 MG CAP PO SCH (09:59)
[2022-10-30] MEDS: Apixaban 5 MG TAB PO SCH ×2 (09:59→21:03)
[2022-10-30] MEDS: Cholecalciferol 1,000 UNITS (25 MCG) TAB PO SCH (09:59)
[2022-10-30] MEDS: Polyethylene Glycol 3350 17 GM Packet PO SCH (10:07)
[2022-10-30] MEDS: Nystatin Cream 15 GM TUBE TOP SCH ×2 (10:08→21:04)
[2022-10-30] MEDS: Hydrocortisone 1% Cream 30 GM TUBE TOP SCH ×2 (10:09→21:03)
[2022-10-30] MEDS: Acetaminophen 325 MG TAB PO PRN (21:04)
[2022-10-30] MEDS: ALPRAZolam 0.25 MG TAB PO PRN (21:05)
[2022-10-30] MEDS: Melatonin 3 MG TAB PO PRN (21:07)
[2022-10-31] MEDS ORDERED: Sodium Chloride 0.9% 500 ML IV SCH (01:15)
[2022-10-31] MEDS ORDERED: Sodium Chloride 0.9% 250 ML 250 ML IV SCH (02:00)
[2022-10-31] MEDS: Cholecalciferol 1,000 UNITS (25 MCG) TAB PO SCH (08:42)
[2022-10-31] MEDS: Dronedarone HCl 400 MG TAB PO SCH ×2 (08:42→17:10)
[2022-10-31] MEDS: Zinc Sulfate 220 MG CAP PO SCH (08:42)
[2022-10-31] MEDS: Hydrocortisone 1% Cream 30 GM TUBE TOP SCH ×2 (08:42→21:59)
[2022-10-31] MEDS: Apixaban 5 MG TAB PO SCH ×2 (08:42→21:54)
[2022-10-31] MEDS: Folic Acid/Vit B Comp W-C PO SCH ×2 (08:42→21:54)
[2022-10-31] MEDS: Saccharomyces boulardii 250 MG CAP PO SCH (08:42)
[2022-10-31] MEDS: Nystatin Cream 15 GM TUBE TOP SCH ×2 (08:43→21:55)
[2022-10-31] MEDS: Polyethylene Glycol 3350 17 GM Packet PO SCH (08:43)
[2022-10-31] MEDS: Melatonin 3 MG TAB PO PRN (21:54)
[2022-10-31] MEDS: Acetaminophen 325 MG TAB PO PRN (21:54)
[2022-10-31] MEDS: ALPRAZolam 0.25 MG TAB PO PRN (23:30)
[2022-11-01 05:06] LABS: Hemoglobin 8.1 g/dL (14.0-18.0); Mean Corpuscular HGB CONC 30.5 g/dL (32.0-36.0); Mean Corpuscular Hemoglobin 26.8 pg (27.0-31.0); Mean Corpuscular Volume 87.7 fl (78.0-98.0); Mean Platelet Volume 7.3 fL (7.4-10.4); Platelet Count 345 10x3/uL (130-400); RBC Distribution Width 15.8 % (11.5-14.5); Red Blood Cell (RBC) Count 3.04 mill/uL (4.70-6.10); White Blood Cell (WBC) Count 10.3 10x3/uL (4.8-10.8)
[2022-11-01 05:35] LABS: Anion Gap 11 mmol/L (10-20); BUN (Urea Nitrogen) 25 mg/dL (8.4-25.7); Calc. Creatinine Clearance 103 mL/min (70-130); Calcium 8.5 mg/dL (7.8-10.44); Carbon Dioxide 22 mmol/L (23-31); Chloride 109 mmol/L (98-107); Estimated GFR 90; Glucose 106 mg/dL (83-110); Potassium 3.8 mmol/L (3.5-5.1); Sodium 138 mmol/L (136-145)
[2022-11-01] MEDS: Saccharomyces boulardii 250 MG CAP PO SCH (09:33)
[2022-11-01] MEDS: Folic Acid/Vit B Comp W-C PO SCH ×2 (09:34→22:30)
[2022-11-01] MEDS: Apixaban 5 MG TAB PO SCH ×2 (09:34→22:30)
[2022-11-01] MEDS: Zinc Sulfate 220 MG CAP PO SCH (09:34)
[2022-11-01] MEDS: Dronedarone HCl 400 MG TAB PO SCH ×2 (09:34→17:15)
[2022-11-01] MEDS: Cholecalciferol 1,000 UNITS (25 MCG) TAB PO SCH (09:35)
[2022-11-01] MEDS: Polyethylene Glycol 3350 17 GM Packet PO SCH (09:37)
[2022-11-01] MEDS: Hydrocortisone 1% Cream 30 GM TUBE TOP SCH ×2 (09:37→22:36)
[2022-11-01] MEDS: Nystatin Cream 15 GM TUBE TOP SCH ×2 (09:38→22:37)
[2022-11-01] MEDS: Melatonin 3 MG TAB PO PRN (22:30)
[2022-11-01] MEDS: ALPRAZolam 0.25 MG TAB PO PRN (22:30)
[2022-11-02] MEDS: Apixaban 5 MG TAB PO SCH ×2 (09:08→20:58)
[2022-11-02] MEDS: Dronedarone HCl 400 MG TAB PO SCH ×2 (09:08→17:10)
[2022-11-02] MEDS: Folic Acid/Vit B Comp W-C PO SCH ×2 (09:09→20:58)
[2022-11-02] MEDS: Hydrocortisone 1% Cream 30 GM TUBE TOP SCH ×2 (09:10→21:02)
[2022-11-02] MEDS: Nystatin Cream 15 GM TUBE TOP SCH ×2 (09:10→21:02)
[2022-11-02] MEDS: Polyethylene Glycol 3350 17 GM Packet PO SCH (09:11)
[2022-11-02] MEDS: Saccharomyces boulardii 250 MG CAP PO SCH (09:11)
[2022-11-02] MEDS: Zinc Sulfate 220 MG CAP PO SCH (09:12)
[2022-11-02] MEDS: Cholecalciferol 1,000 UNITS (25 MCG) TAB PO SCH (11:07)
[2022-11-02] MEDS ORDERED: Morphine 4 MG/ML VIAL SLOW IVP SCH (12:39)
[2022-11-02] MEDS: ALPRAZolam 0.25 MG TAB PO PRN (21:00)
[2022-11-02] MEDS: Melatonin 3 MG TAB PO PRN (21:00)
[2022-11-03 04:31] LABS: Hemoglobin 8.5 g/dL (14.0-18.0); Mean Corpuscular HGB CONC 32.5 g/dL (32.0-36.0); Mean Corpuscular Hemoglobin 29.3 pg (27.0-31.0); Mean Platelet Volume 7.5 fL (7.4-10.4); Platelet Count 313 10x3/uL (130-400); RBC Distribution Width 15.9 % (11.5-14.5); White Blood Cell (WBC) Count 12.9 10x3/uL (4.8-10.8)
[2022-11-03 04:44] LABS: Anion Gap 12 mmol/L (10-20); BUN (Urea Nitrogen) 21 mg/dL (8.4-25.7); Calc. Creatinine Clearance 99 mL/min (70-130); Calcium 8.3 mg/dL (7.8-10.44); Carbon Dioxide 17 mmol/L (23-31); Chloride 111 mmol/L (98-107); Estimated GFR 89; Glucose 109 mg/dL (83-110); Potassium 4.4 mmol/L (3.5-5.1); Sodium 136 mmol/L (136-145)
[2022-11-03] MEDS: Folic Acid/Vit B Comp W-C PO SCH ×2 (09:09→20:02)
[2022-11-03] MEDS: Dronedarone HCl 400 MG TAB PO SCH ×2 (09:09→17:26)
[2022-11-03] MEDS: Cholecalciferol 1,000 UNITS (25 MCG) TAB PO SCH (09:09)
[2022-11-03] MEDS: Saccharomyces boulardii 250 MG CAP PO SCH (09:09)
[2022-11-03] MEDS: Apixaban 5 MG TAB PO SCH ×2 (09:09→20:02)
[2022-11-03] MEDS: Zinc Sulfate 220 MG CAP PO SCH (09:09)
[2022-11-03] MEDS: Nystatin Cream 15 GM TUBE TOP SCH ×2 (09:17→20:05)
[2022-11-03] MEDS: Hydrocortisone 1% Cream 30 GM TUBE TOP SCH ×2 (09:19→20:02)
[2022-11-03] MEDS: Polyethylene Glycol 3350 17 GM Packet PO SCH (10:37)
[2022-11-03] MEDS: Acetaminophen 325 MG TAB PO PRN (20:01)
[2022-11-03] MEDS: ALPRAZolam 0.25 MG TAB PO PRN (20:01)
[2022-11-03] MEDS: Melatonin 3 MG TAB PO PRN (20:03)
[2022-11-04] MEDS: Apixaban 5 MG TAB PO SCH (08:55)
[2022-11-04] MEDS: Dronedarone HCl 400 MG TAB PO SCH ×2 (08:55→17:04)
[2022-11-04] MEDS: Saccharomyces boulardii 250 MG CAP PO SCH (08:55)
[2022-11-04] MEDS: Cholecalciferol 1,000 UNITS (25 MCG) TAB PO SCH (08:55)
[2022-11-04] MEDS: Zinc Sulfate 220 MG CAP PO SCH (08:55)
[2022-11-04] MEDS: Folic Acid/Vit B Comp W-C PO SCH ×2 (08:55→20:02)
[2022-11-04] MEDS: Nystatin Cream 15 GM TUBE TOP SCH ×2 (08:56→20:06)
[2022-11-04] MEDS: Hydrocortisone 1% Cream 30 GM TUBE TOP SCH ×2 (08:56→20:06)
[2022-11-04] MEDS ORDERED: Iopamidol 370 76% 100 ML VIAL ONE (10:13)
[2022-11-04] MEDS ORDERED: GASTROGRAFIN 30 ML BOT ONE (10:13)
[2022-11-04 19:48] LABS: ALT (SGPT) 49 U/L (8-55); AST (SGOT) 78 U/L (5-34); Albumin 2.2 g/dL (3.4-4.8); Alkaline Phosphatase 434 U/L (40-110); Bilirubin, Direct 0.2 mg/dL (0.1-0.3); Bilirubin, Total 0.6 mg/dL (0.2-1.2); Protein, Total 5.3 g/dL (5.8-8.1)
[2022-11-04] MEDS: Melatonin 3 MG TAB PO PRN (20:02)
[2022-11-04] MEDS: ALPRAZolam 0.25 MG TAB PO PRN (20:02)
[2022-11-04] MEDS: Acetaminophen 325 MG TAB PO PRN ×2 (20:02→23:34)
[2022-11-05 06:56] LABS: #Eosinphils 0.1 thou/uL (0.0-0.7); #Lymphocytes 0.8 thou/uL (1.20-3.40); #Monocytes 0.7 thou/uL (0.11-0.59); #Neutrophils 14.7 thou/uL (1.40-6.50); %Basophils 0.2 % (0.0-1.0); %Eosinophils 0.4 % (0.0-10.0); %Lymphocytes 4.9 % (21.0-51.0); %Monocytes 4.3 % (0.0-10.0); %Neutrophils 90.2 % (42.0-75.0); Hemoglobin 8.2 g/dL (14.0-18.0); Mean Corpuscular HGB CONC 31.3 g/dL (32.0-36.0); Mean Corpuscular Hemoglobin 26.7 pg (27.0-31.0); Mean Corpuscular Volume 85.1 fl (78.0-98.0); Mean Platelet Volume 6.9 fL (7.4-10.4); Platelet Count 310 10x3/uL (130-400); RBC Distribution Width 15.8 % (11.5-14.5); Red Blood Cell (RBC) Count 3.07 mill/uL (4.70-6.10); White Blood Cell (WBC) Count 16.3 10x3/uL (4.8-10.8)
[2022-11-05 07:17] LABS: ALT (SGPT) 41 U/L (8-55); AST (SGOT) 28 U/L (5-34); Albumin 2.5 g/dL (3.4-4.8); Alkaline Phosphatase 358 U/L (40-110); Anion Gap 9 mmol/L (10-20); BUN (Urea Nitrogen) 28 mg/dL (8.4-25.7); Bilirubin, Total 0.6 mg/dL (0.2-1.2); Calc. Creatinine Clearance 90 mL/min (70-130); Calcium 8.4 mg/dL (7.8-10.44); Carbon Dioxide 23 mmol/L (23-31); Chloride 106 mmol/L (98-107); Estimated GFR 87; Globulin 2.2 g/dL (2.4-3.5); Glucose 117 mg/dL (83-110); Potassium 3.8 mmol/L (3.5-5.1); Protein, Total 4.7 g/dL (5.8-8.1); Sodium 134 mmol/L (136-145)
[2022-11-05] MEDS: Saccharomyces boulardii 250 MG CAP PO SCH (09:41)
[2022-11-05] MEDS: Dronedarone HCl 400 MG TAB PO SCH ×2 (09:41→17:01)
[2022-11-05] MEDS: Folic Acid/Vit B Comp W-C PO SCH ×2 (09:41→20:28)
[2022-11-05] MEDS: Cholecalciferol 1,000 UNITS (25 MCG) TAB PO SCH (09:41)
[2022-11-05] MEDS: Zinc Sulfate 220 MG CAP PO SCH (09:41)
[2022-11-05] MEDS: Hydrocortisone 1% Cream 30 GM TUBE TOP SCH ×2 (09:42→20:29)
[2022-11-05] MEDS: Nystatin Cream 15 GM TUBE TOP SCH ×2 (09:42→20:29)
[2022-11-05] MEDS: Acetaminophen 325 MG TAB PO PRN ×2 (17:01→20:27)
[2022-11-05] MEDS ORDERED: Sodium Chloride 0.9% 500 ML IV SCH (20:15)
[2022-11-05] MEDS: ALPRAZolam 0.25 MG TAB PO PRN (20:27)
[2022-11-05 20:28] LABS: Bacteria/HPF 4+ HPF (None Seen); Bilirubin Negative (Negative); Blood, Urine 1+ (Negative); Clarity Turbid (Clear); Glucose, Urine (Dipstick) Normal (Negative); Ketone, Urine Negative (Negative); Leukocyte 500 Leu/uL (Negative); Nitrite Negative (Negative); Protein, Urine (Dipstick) 20 mg/dL (Neg-Trace); Squamous Epithelial 0-3 HPF (0-3); Urobilinogen Normal mg/dL (Less than 2); WBC/HPF Greater than 50 HPF (0-3)
[2022-11-06 07:50] LABS: ALT (SGPT) 38 U/L (8-55); AST (SGOT) 25 U/L (5-34); Albumin 2.3 g/dL (3.4-4.8); Alkaline Phosphatase 321 U/L (40-110); Anion Gap 12 mmol/L (10-20); BUN (Urea Nitrogen) 29 mg/dL (8.4-25.7); Calc. Creatinine Clearance 94 mL/min (70-130); Calcium 8.2 mg/dL (7.8-10.44); Carbon Dioxide 21 mmol/L (23-31); Chloride 108 mmol/L (98-107); Estimated GFR 88; Globulin 2.5 g/dL (2.4-3.5); Glucose 99 mg/dL (83-110); Potassium 3.7 mmol/L (3.5-5.1); Protein, Total 4.8 g/dL (5.8-8.1); Sodium 137 mmol/L (136-145)
[2022-11-06] MEDS ORDERED: Sodium Chloride 0.9% 250 ML 250 ML IVPB SCH (08:30)
[2022-11-06] MEDS: Folic Acid/Vit B Comp W-C PO SCH ×2 (09:03→19:42)
[2022-11-06] MEDS: Saccharomyces boulardii 250 MG CAP PO SCH (09:03)
[2022-11-06] MEDS: Dronedarone HCl 400 MG TAB PO SCH ×2 (09:03→17:19)
[2022-11-06] MEDS: Zinc Sulfate 220 MG CAP PO SCH (09:03)
[2022-11-06] MEDS: Cholecalciferol 1,000 UNITS (25 MCG) TAB PO SCH (09:04)
[2022-11-06] MEDS: Hydrocortisone 1% Cream 30 GM TUBE TOP SCH ×2 (09:04→19:39)
[2022-11-06] MEDS: Nystatin Cream 15 GM TUBE TOP SCH ×2 (09:04→19:41)
[2022-11-06] MEDS: Acetaminophen 325 MG TAB PO PRN ×2 (12:23→19:43)
[2022-11-06] MEDS ORDERED: Ketorolac Tromethamine 30 MG/ML VIAL IVP SCH (13:00)
[2022-11-06] MEDS: Albumin 25% 25 GM/100 ML BOT IVPB SCH ×2 (17:19→23:35)
[2022-11-06] MEDS ORDERED: Meropenem 1 GM in Sodium Chloride 0.9% 100 ML IVPB SCH ×2 (17:45→20:00)
[2022-11-06] MEDS: Vancomycin HCl 125 MG/5 ML (BATCHED) UDCUP PO SCH (19:42)
[2022-11-06] MEDS: ALPRAZolam 0.25 MG TAB PO PRN (19:42)
[2022-11-06] MEDS: Melatonin 3 MG TAB PO PRN (19:42)
[2022-11-06] MEDS ORDERED: Meropenem 500 MG in Sodium Chloride 0.9% 100 ML IVPB SCH (22:00)
[2022-11-07] MEDS: Meropenem 1 GM in Sodium Chloride 0.9% 100 ML IVPB SCH ×3 (03:47→20:32)
[2022-11-07] MEDS: Albumin 25% 25 GM/100 ML BOT IVPB SCH ×2 (05:50→11:53)
[2022-11-07 06:30] LABS: ALT (SGPT) 28 U/L (8-55); AST (SGOT) 20 U/L (5-34); Albumin 2.9 g/dL (3.4-4.8); Alkaline Phosphatase 245 U/L (40-110); Anion Gap 9 mmol/L (10-20); BUN (Urea Nitrogen) 29 mg/dL (8.4-25.7); Bilirubin, Total 0.5 mg/dL (0.2-1.2); Calc. Creatinine Clearance 92 mL/min (70-130); Calcium 8.3 mg/dL (7.8-10.44); Carbon Dioxide 23 mmol/L (23-31); Chloride 107 mmol/L (98-107); Estimated GFR 87; Globulin 1.9 g/dL (2.4-3.5); Glucose 93 mg/dL (83-110); Potassium 3.3 mmol/L (3.5-5.1); Protein, Total 4.8 g/dL (5.8-8.1); Sodium 136 mmol/L (136-145)
[2022-11-07] MEDS ORDERED: Potassium Chloride 20 MEQ TAB PO SCH (08:00)
[2022-11-07] MEDS: Dronedarone HCl 400 MG TAB PO SCH ×2 (10:01→17:20)
[2022-11-07] MEDS: Zinc Sulfate 220 MG CAP PO SCH (10:02)
[2022-11-07] MEDS: Saccharomyces boulardii 250 MG CAP PO SCH (10:02)
[2022-11-07] MEDS: Cholecalciferol 1,000 UNITS (25 MCG) TAB PO SCH (10:03)
[2022-11-07] MEDS: Folic Acid/Vit B Comp W-C PO SCH ×2 (10:03→20:33)
[2022-11-07] MEDS: Vancomycin HCl 125 MG/5 ML (BATCHED) UDCUP PO SCH ×2 (10:04→20:34)
[2022-11-07] MEDS: Hydrocortisone 1% Cream 30 GM TUBE TOP SCH ×2 (10:06→20:20)
[2022-11-07] MEDS: Nystatin Cream 15 GM TUBE TOP SCH ×2 (10:06→20:20)
[2022-11-07] MEDS: Melatonin 3 MG TAB PO PRN (20:33)
[2022-11-07] MEDS: ALPRAZolam 0.25 MG TAB PO PRN (20:33)
[2022-11-08] MEDS: Meropenem 1 GM in Sodium Chloride 0.9% 100 ML IVPB SCH ×3 (04:48→20:32)
[2022-11-08 05:52] LABS: #Eosinphils 0.1 thou/uL (0.0-0.7); #Lymphocytes 0.8 thou/uL (1.20-3.40); #Monocytes 0.6 thou/uL (0.11-0.59); #Neutrophils 7.3 thou/uL (1.40-6.50); %Basophils 0.3 % (0.0-1.0); %Lymphocytes 8.8 % (21.0-51.0); %Monocytes 6.7 % (0.0-10.0); %Neutrophils 83.2 % (42.0-75.0); Hemoglobin 7.1 g/dL (14.0-18.0); Mean Corpuscular HGB CONC 31.2 g/dL (32.0-36.0); Mean Corpuscular Hemoglobin 26.3 pg (27.0-31.0); Mean Corpuscular Volume 84.4 fl (78.0-98.0); Mean Platelet Volume 7.8 fL (7.4-10.4); Platelet Count 276 10x3/uL (130-400); RBC Distribution Width 15.5 % (11.5-14.5); White Blood Cell (WBC) Count 8.8 10x3/uL (4.8-10.8)
[2022-11-08 06:20] LABS: ALT (SGPT) 26 U/L (8-55); AST (SGOT) 21 U/L (5-34); Alkaline Phosphatase 241 U/L (40-110); Anion Gap 9 mmol/L (10-20); BUN (Urea Nitrogen) 23 mg/dL (8.4-25.7); Bilirubin, Total 0.6 mg/dL (0.2-1.2); Calc. Creatinine Clearance 102 mL/min (70-130); Calcium 8.3 mg/dL (7.8-10.44); Carbon Dioxide 23 mmol/L (23-31); Chloride 107 mmol/L (98-107); Estimated GFR 90; Globulin 1.9 g/dL (2.4-3.5); Glucose 111 mg/dL (83-110); Potassium 3.2 mmol/L (3.5-5.1); Protein, Total 4.9 g/dL (5.8-8.1); Sodium 136 mmol/L (136-145)
[2022-11-08] MEDS ORDERED: Potassium Chloride 20 MEQ TAB PO SCH (08:00)
[2022-11-08] MEDS: Dronedarone HCl 400 MG TAB PO SCH ×2 (08:41→18:06)
[2022-11-08] MEDS: Saccharomyces boulardii 250 MG CAP PO SCH (08:41)
[2022-11-08] MEDS: Zinc Sulfate 220 MG CAP PO SCH (08:42)
[2022-11-08] MEDS: Cholecalciferol 1,000 UNITS (25 MCG) TAB PO SCH (08:42)
[2022-11-08] MEDS: Folic Acid/Vit B Comp W-C PO SCH ×2 (08:42→20:34)
[2022-11-08] MEDS: Nystatin Cream 15 GM TUBE TOP SCH ×2 (08:43→21:06)
[2022-11-08] MEDS: Hydrocortisone 1% Cream 30 GM TUBE TOP SCH ×2 (08:44→21:06)
[2022-11-08] MEDS: Vancomycin HCl 125 MG/5 ML (BATCHED) UDCUP PO SCH ×2 (10:30→20:34)
[2022-11-08] MEDS: Melatonin 3 MG TAB PO PRN (20:33)
[2022-11-08] MEDS: ALPRAZolam 0.25 MG TAB PO PRN (20:42)
[2022-11-09] MEDS: Meropenem 1 GM in Sodium Chloride 0.9% 100 ML IVPB SCH ×3 (04:35→20:05)
[2022-11-09 07:11] LABS: ALT (SGPT) 29 U/L (8-55); AST (SGOT) 25 U/L (5-34); Albumin 2.8 g/dL (3.4-4.8); Alkaline Phosphatase 252 U/L (40-110); Anion Gap 10 mmol/L (10-20); BUN (Urea Nitrogen) 21 mg/dL (8.4-25.7); Bilirubin, Total 0.5 mg/dL (0.2-1.2); Calc. Creatinine Clearance 105 mL/min (70-130); Calcium 8.3 mg/dL (7.8-10.44); Carbon Dioxide 22 mmol/L (23-31); Chloride 109 mmol/L (98-107); Estimated GFR 91; Globulin 1.9 g/dL (2.4-3.5); Glucose 112 mg/dL (83-110); Potassium 3.4 mmol/L (3.5-5.1); Protein, Total 4.7 g/dL (5.8-8.1); Sodium 138 mmol/L (136-145)
[2022-11-09] MEDS: Saccharomyces boulardii 250 MG CAP PO SCH (09:01)
[2022-11-09] MEDS: Zinc Sulfate 220 MG CAP PO SCH (09:01)
[2022-11-09] MEDS: Cholecalciferol 1,000 UNITS (25 MCG) TAB PO SCH (09:01)
[2022-11-09] MEDS: Vancomycin HCl 125 MG/5 ML (BATCHED) UDCUP PO SCH ×2 (09:01→20:05)
[2022-11-09] MEDS: Folic Acid/Vit B Comp W-C PO SCH ×2 (09:01→20:05)
[2022-11-09] MEDS: Dronedarone HCl 400 MG TAB PO SCH ×2 (09:01→17:20)
[2022-11-09] MEDS: Nystatin Cream 15 GM TUBE TOP SCH ×2 (09:02→20:06)
[2022-11-09] MEDS: Hydrocortisone 1% Cream 30 GM TUBE TOP SCH ×2 (09:02→20:07)
[2022-11-09] MEDS ORDERED: Potassium Bicarbonate/Cit Ac 20 MEQ TAB PO SCH (10:15)
[2022-11-09] MEDS: Melatonin 3 MG TAB PO PRN (23:22)
[2022-11-09] MEDS: ALPRAZolam 0.25 MG TAB PO PRN (23:22)
[2022-11-10] MEDS: Meropenem 1 GM in Sodium Chloride 0.9% 100 ML IVPB SCH ×2 (04:34→12:04)
[2022-11-10 06:26] LABS: ALT (SGPT) 29 U/L (8-55); AST (SGOT) 22 U/L (5-34); Albumin 2.6 g/dL (3.4-4.8); Alkaline Phosphatase 233 U/L (40-110); Anion Gap 9 mmol/L (10-20); BUN (Urea Nitrogen) 23 mg/dL (8.4-25.7); Bilirubin, Total 0.5 mg/dL (0.2-1.2); Calc. Creatinine Clearance 114 mL/min (70-130); Calcium 8.2 mg/dL (7.8-10.44); Carbon Dioxide 23 mmol/L (23-31); Chloride 109 mmol/L (98-107); Estimated GFR 93; Glucose 96 mg/dL (83-110); Potassium 3.5 mmol/L (3.5-5.1); Protein, Total 4.6 g/dL (5.8-8.1); Sodium 137 mmol/L (136-145)
[2022-11-10 07:24] VITALS: TEMP 98.5
[2022-11-10] MEDS ORDERED: Potassium Bicarbonate/Cit Ac 20 MEQ TAB PER TUBE SCH (08:00)
[2022-11-10] MEDS: Vancomycin HCl 125 MG/5 ML (BATCHED) UDCUP PO SCH (09:10)
[2022-11-10] MEDS: Cholecalciferol 1,000 UNITS (25 MCG) TAB PO SCH (09:13)
[2022-11-10] MEDS: Folic Acid/Vit B Comp W-C PO SCH (09:13)
[2022-11-10] MEDS: Dronedarone HCl 400 MG TAB PO SCH (09:13)
[2022-11-10] MEDS: Zinc Sulfate 220 MG CAP PO SCH (09:13)
[2022-11-10] MEDS: Saccharomyces boulardii 250 MG CAP PO SCH (09:13)
[2022-11-10] MEDS: Nystatin Cream 15 GM TUBE TOP SCH (09:18)
[2022-11-10] MEDS: Hydrocortisone 1% Cream 30 GM TUBE TOP SCH (09:18)
[2022-11-10 11:27] VITALS: BP 92/50
[2022-11-10] MEDS: Acetaminophen 325 MG TAB PO PRN (12:04)
== END 2022-11-10 15:11 | disposition hospice, inpatient (51) | DRG 329 ==
LOC: ERS 23:46 → ERHOLD 09-30 01:28 → T4-A 09-30 13:44 → 2NO 10-14 18:07 → CCU 10-17 20:34 → IMCU/EMU 10-20 15:54 → 2NO 10-28 01:30 → T4-A 11-03 11:14
PROVIDERS: ADMIT Internal Medicine; ATTEND Internal Medicine
PROC: 3E03329 Introduction of Other Anti-infective into Peripheral Vein, Percutaneous Approach (ICD-10-PCS; 2022-09-30)
PROC: 0D9670Z Drainage of Stomach with Drainage Device, Via Natural or Artificial Opening (ICD-10-PCS; 2022-10-01)
PROC: 3E0436Z Introduction of Nutritional Substance into Central Vein, Percutaneous Approach (ICD-10-PCS; 2022-10-09)
PROC: 0DB80ZZ Excision of Small Intestine, Open Approach (ICD-10-PCS; principal; 2022-10-17)
PROC: 0DNB0ZZ Release Ileum, Open Approach (ICD-10-PCS; 2022-10-17)
PROC: 02HV33Z Insertion of Infusion Device into Superior Vena Cava, Percutaneous Approach (ICD-10-PCS; 2022-10-17)
PROC: 30233N1 Transfusion of Nonautologous Red Blood Cells into Peripheral Vein, Percutaneous Approach (ICD-10-PCS; 2022-10-17)
PROC: 5A1935Z Respiratory Ventilation, Less than 24 Consecutive Hours (ICD-10-PCS; 2022-10-17)
DX: K56.50 Intestinal adhesions [bands], unspecified as to partial versus complete obstruction (principal); A41.4 Sepsis due to anaerobes; J95.821 Acute postprocedural respiratory failure; E43 Unspecified severe protein-calorie malnutrition; I81 Portal vein thrombosis; C17.9 Malignant neoplasm of small intestine, unspecified; A04.72 Enterocolitis due to Clostridium difficile, not specified as recurrent; E87.1 Hypo-osmolality and hyponatremia; D68.51 Activated protein C resistance; K55.9 Vascular disorder of intestine, unspecified; N39.0 Urinary tract infection, site not specified; Z16.11 Resistance to penicillins; Z16.19 Resistance to other specified beta lactam antibiotics; I47.1 Supraventricular tachycardia; E87.20 Acidosis, unspecified; K91.89 Other postprocedural complications and disorders of digestive system; Z66 Do not resuscitate; Z20.822 Contact with and (suspected) exposure to COVID-19; K56.7 Ileus, unspecified; E88.09 Other disorders of plasma-protein metabolism, not elsewhere classified; N18.9 Chronic kidney disease, unspecified; E86.0 Dehydration; K21.9 Gastro-esophageal reflux disease without esophagitis; I25.10 Atherosclerotic heart disease of native coronary artery without angina pectoris; K40.90 Unilateral inguinal hernia, without obstruction or gangrene, not specified as recurrent; F41.9 Anxiety disorder, unspecified; I48.0 Paroxysmal atrial fibrillation; L89.150 Pressure ulcer of sacral region, unstageable; E78.5 Hyperlipidemia, unspecified; E87.6 Hypokalemia; E83.42 Hypomagnesemia; Y83.8 Other surgical procedures as the cause of abnormal reaction of the patient, or of later complication, without mention of misadventure at the time of the procedure; L30.8 Other specified dermatitis; B37.2 Candidiasis of skin and nail; E87.8 Other disorders of electrolyte and fluid balance, not elsewhere classified; E87.70 Fluid overload, unspecified; Z86.718 Personal history of other venous thrombosis and embolism; Z98.890 Other specified postprocedural states; Z88.8 Allergy status to other drugs, medicaments and biological substances; Z79.01 Long term (current) use of anticoagulants; Z78.1 Physical restraint status; Z85.51 Personal history of malignant neoplasm of bladder; Z68.27 Body mass index [BMI] 27.0-27.9, adult; Z79.899 Other long term (current) drug therapy; Z90.49 Acquired absence of other specified parts of digestive tract; Z98.49 Cataract extraction status, unspecified eye; Z85.46 Personal history of malignant neoplasm of prostate
CPT/HCPCS: 36415; 36416; 36430; 71045; 74018; 74019; 74022; 74177; 74250; 80048; 80053; 80076; 81001; 81003; 81015; 82306; 82570; 82805; 83605; 83690; 83735; 83880; 84100; 84484; 85025; 85027; 86850; 86900; 86901; 87040; 87077; 87086; 87149; 87186; 87324; 87449; 87493; 87811; 88309; 93005; 93010; 94002; 94003; 96361; 96365; 97139; C1751; C1776; C9113; J0282; J1160; J1642; J1650; J1885; J1940; J1956; J2060; J2185; J2270; J2272; J2405; J2543; J2550; J2704; J3010; J3370-JW; J3475; J3480; J3490; J7030; J7042; J7050; J7070; J7120; P9016; P9045; P9047; Q9963; Q9967; U0002